=== PATIENT | male | born 1995 | race Two or more races ===

== ENCOUNTER 2023-01-11 16:03 | Inpatient (IN) | payer OTHER ==
[~2023-01-11] VITALS: Ht 172.7 cm; Wt 94.5 kg
[2023-01-11 16:30] VITALS: PULSE 102; RESP 13; O2SAT 94
[2023-01-11] MEDS ORDERED: SODIUM CHLORIDE 0.9% 2,000 ML IV ONE (16:30)
[2023-01-11 16:43] LABS: Basophils % (auto) 0.6 % (0.0-2.0); Lymphocytes # (auto) 1.5 10 ^3/uL (0.4-5.4); Lymphocytes % (auto) 15.4 % (10.0-50.0); Monocytes # (auto) 0.5 10 ^3/uL (0-1.3); Monocytes % (auto) 5.4 % (0.0-12.0); Neutrophils # (auto) 7.7 10 ^3/uL (1.6-8.6); Neutrophils % (auto) 78.6 % (37.0-80.0); White Blood Cell 9.7 10^3/uL (4.4-10.8)
[2023-01-11 16:44] LABS: Basophils # (auto) 0.1 10 ^3/uL (0-0.2); Eosinophils # (auto) 0 10 ^3/uL (0-0.8); Hematocrit 42.3 % (41.0-53.0); Hemoglobin 14.5 g/dL (13.5-17.5); Mean Corpuscular Hemoglobin 31.9 pg (28.0-32.0); Mean Corpuscular Hgb Conc. 34.3 g/dL (32.0-36.0); Mean Corpuscular Volume 93.2 fL (80.0-100.0); Red Blood Cells 4.54 10^6/uL (4.5-5.90); Red Cell Distribution Width 13.6 % (11.8-14.3)
[2023-01-11 17:01] LABS: Alanine Aminotransferase 75 U/L (7-40); Albumin 4.2 g/dL (3.2-4.8); Alkaline Phosphatase 83 U/L (46-116); Anion Gap 7 (5-15); Aspartate Aminotransferase 46 U/L (13-40); Bilirubin, Total 0.5 mg/dL (0.2-1.0); Calcium 8.5 mg/dL (8.5-10.1); Carbon Dioxide 28 mmol/L (20-30); Chloride 110 mmol/L (98-107); Glucose 88 mg/dL (74-106); Potassium 3.6 mmol/L (3.5-5.1); Sodium 145 mmol/L (136-145)
[2023-01-11] MEDS ORDERED: LORazepam 2MG/ML-1ML VIAL ONE (17:04)
[2023-01-11 17:09] LABS: INR 1.04 (0.9-1.15); Partial Thromboplastin Time 27.9 SEC (24.5-34.5); Prothrombin Time 10.9 sec (9.3-11.8)
[2023-01-11] MEDS ORDERED: LORazepam 2MG/ML-1ML VIAL IV ONE (17:15)
[2023-01-11 17:29] LABS: Amphetamine Screen, Urine Neg (NEGATIVE); Barbiturate Scree,Urine Neg (NEGATIVE); Benzodiazephine Screen, Urine Neg (NEGATIVE)
[2023-01-11 17:30] LABS: Cannabinoid Screen, Urine Neg (NEGATIVE); Cocaine Screen, Urine Neg (NEGATIVE); Opiate Scree,Urine Neg (NEGATIVE); Phencyclidine Screen, Urine Neg (NEGATIVE)
[2023-01-11 17:32] LABS: Urine Bacteria NONE SEEN /hpf (None Seen); Urine Blood Negative /uL (Negative); Urine Clarity Clear (Clear); Urine Color Colorless (Yellow); Urine Protein, UAD Negative (Negative); Urine Specific Gravity 1.004 (1.001-1.035); Urine Urobilinogen Normal (Negative); Urine WBC 1 /hpf (0 - 3)
[2023-01-11 17:35] LABS: BUN/Creatinine Ratio 8.6 (10.0-20.0); Blood Urea Nitrogen < 5 mg/dL (9-23)
[2023-01-11 17:36] LABS: Blood Alcohol 484.6 mg/dL (<10)
[2023-01-11 19:25] VITALS: PULSE 97; RESP 16; O2SAT 95
[2023-01-11] MEDS ORDERED: SODIUM CHLORIDE 0.9% 1,000 ML IV ONE (20:00)
[2023-01-11] MEDS ORDERED: SERT-206 PO (20:37)
[2023-01-11] MEDS ORDERED: GABA-1250 PO (20:37)
[2023-01-11] MEDS ORDERED: TRAZ-227 PO (20:37)
[2023-01-11] MEDS ORDERED: SERT-160 PO (20:37)
[2023-01-11] MEDS ORDERED: LEVE500T3 PO (20:37)
[2023-01-11] MEDS ORDERED: NALT50TA5 PO (20:37)
[2023-01-11] MEDS ORDERED: MORPHINE SULFATE INJ 2 MG/ml SYRG IV PRN (20:45)
[2023-01-11] MEDS ORDERED: ACETAMINOPHEN 325 MG TAB PO PRN (20:45)
[2023-01-11] MEDS ORDERED: ONDANSETRON HCL 4 MG/2 ML VIAL IV PRN (20:45)
[2023-01-11] MEDS ORDERED: NITROGLYCERIN 0.4 MG SL TAB SL PRN (20:45)
[2023-01-11] MEDS: SODIUM CHLORIDE 0.9% 1,000 ML IV SCH (21:20)
[2023-01-11] MEDS ORDERED: levETIRAcetam 500 MG TAB PO SCH (22:00)
[2023-01-11] MEDS: GABAPENTIN 300 MG CAP PO SCH (22:23)
[2023-01-12] MEDS: SODIUM CHLORIDE 0.9% 1,000 ML IV SCH ×2 (03:32→13:25)
[2023-01-12 03:56] VITALS: BP 112/79; PULSE 80; RESP 18; TEMP 97.6; O2SAT 100
[2023-01-12] MEDS: GABAPENTIN 300 MG CAP PO SCH ×2 (06:00→14:00)
[2023-01-12 08:00] VITALS: PULSE 86
[2023-01-12 08:49] LABS: Basophils # (auto) 0.1 10 ^3/uL (0-0.2); Basophils % (auto) 0.7 % (0.0-2.0); Eosinophils # (auto) 0 10 ^3/uL (0-0.8); Eosinophils % (auto) 0.2 % (0.0-7.0); Hematocrit 40.2 % (41.0-53.0); Hemoglobin 13.7 g/dL (13.5-17.5); Lymphocytes % (auto) 22.8 % (10.0-50.0); Mean Corpuscular Hemoglobin 31.9 pg (28.0-32.0); Mean Corpuscular Hgb Conc. 34.1 g/dL (32.0-36.0); Mean Corpuscular Volume 93.5 fL (80.0-100.0); Monocytes # (auto) 0.4 10 ^3/uL (0-1.3); Monocytes % (auto) 4.9 % (0.0-12.0); Neutrophils # (auto) 6.2 10 ^3/uL (1.6-8.6); Neutrophils % (auto) 71.4 % (37.0-80.0); Nucleated Red Blood Cells % 0.1 %; Red Blood Cells 4.29 10^6/uL (4.5-5.90); Red Cell Distribution Width 13.3 % (11.8-14.3); White Blood Cell 8.6 10^3/uL (4.4-10.8)
[2023-01-12 09:07] VITALS: BP 121/67; PULSE 85; RESP 15; TEMP 98.9; O2SAT 99
[2023-01-12 09:09] LABS: Alanine Aminotransferase 53 U/L (7-40); Albumin 3.8 g/dL (3.2-4.8); Alkaline Phosphatase 76 U/L (46-116); Anion Gap 8 (5-15); Aspartate Aminotransferase 36 U/L (13-40); Calcium 8.2 mg/dL (8.5-10.1); Carbon Dioxide 27 mmol/L (20-30); Chloride 106 mmol/L (98-107); Glucose 86 mg/dL (74-106); Potassium 3.6 mmol/L (3.5-5.1); Sodium 141 mmol/L (136-145)
[2023-01-12 09:10] LABS: Bilirubin, Total 0.6 mg/dL (0.2-1.0); Total Protein 6.5 g/dL (5.7-8.2)
[2023-01-12 09:11] LABS: BUN/Creatinine Ratio 8.9 (10.0-20.0); Blood Urea Nitrogen < 5 mg/dL (9-23)
[2023-01-12] MEDS ORDERED: ENOXAPARIN SOD 40 MG/0.4 ML SYRINGE SC SCH (10:00)
[2023-01-12] MEDS ORDERED: SERTRALINE HCL 50 MG TAB PO SCH (10:00)
[2023-01-12] MEDS ORDERED: B-COMPLEX W/ C & FOLIC ACID(NEPHROVITE TAB) PO SCH (11:30)
[2023-01-12 13:00] VITALS: BP 137/88; PULSE 100; RESP 19; TEMP 98.3; O2SAT 98
[2023-01-12 16:22] VITALS: BP 137/88; PULSE 100; RESP 19; TEMP 98.3; O2SAT 98
[2023-01-12 17:00] VITALS: BP 113/68; PULSE 105; RESP 17; TEMP 98.5; O2SAT 96
[2023-01-13] MEDS ORDERED: THIAMINE HCL 100 MG TAB PO SCH (10:00)
== END 2023-01-12 17:00 | disposition home or self-care (01) | DRG 52 ==
LOC: EDBD 16:03 → ER 16:03 → EDUNIT# 16:03 → TELE 20:36 → TELE-EAST 01-12 02:45
PROVIDERS: ADMIT Nurse Practitioner Family; ATTEND Nurse Practitioner Acute Care
DX: G92.8 Other toxic encephalopathy (principal); F10.229 Alcohol dependence with intoxication, unspecified; G40.909 Epilepsy, unspecified, not intractable, without status epilepticus; Y90.8 Blood alcohol level of 240 mg/100 ml or more; H11.32 Conjunctival hemorrhage, left eye; S09.93XA Unspecified injury of face, initial encounter; R09.02 Hypoxemia; X58.XXXA Exposure to other specified factors, initial encounter; Y93.89 Activity, other specified; Y92.89 Other specified places as the place of occurrence of the external cause; Y99.8 Other external cause status
CPT/HCPCS: 36415; 70450; 70486; 71045; 72125; 80053; 80307; 80320; 81001; 82140; 85025; 85610; 85730; 96361; 96374; 99291; G0378; J2405; J7060

== ENCOUNTER 2024-01-13 03:11 | Emergency (ER) | payer MEDICAID, OTHER ==
[~2024-01-13] VITALS: Ht 172.7 cm; Wt 86.7 kg
[~2024-01-13 03:11] MED LIST: GABA-1250 PO; LEVE500T3 PO; NALT50TA5 PO; SERT-160 PO; SERT-206 PO; TRAZ-227 PO
[2024-01-13 05:02] LABS: Basophils # (auto) 0 10 ^3/uL (0-0.2); Basophils % (auto) 0.9 % (0.0-2.0); Eosinophils # (auto) 0 10 ^3/uL (0-0.8); Eosinophils % (auto) 0.3 % (0.0-7.0); Hematocrit 45.2 % (41.0-53.0); Hemoglobin 15.8 g/dL (13.5-17.5); Lymphocytes # (auto) 1.2 10 ^3/uL (0.4-5.4); Lymphocytes % (auto) 22.6 % (10.0-50.0); Mean Corpuscular Hemoglobin 34.6 pg (28.0-32.0); Mean Corpuscular Hgb Conc. 34.9 g/dL (32.0-36.0); Mean Corpuscular Volume 99.1 fL (80.0-100.0); Monocytes # (auto) 0.3 10 ^3/uL (0-1.3); Monocytes % (auto) 5.8 % (0.0-12.0); Neutrophils # (auto) 3.8 10 ^3/uL (1.6-8.6); Neutrophils % (auto) 70.4 % (37.0-80.0); Platelet Count (auto) 234 10^3/uL (140-450); Red Blood Cells 4.56 10^6/uL (4.5-5.90); Red Cell Distribution Width 13.4 % (11.8-14.3); White Blood Cell 5.4 10^3/uL (4.4-10.8)
[2024-01-13] MEDS: ONDANSETRON HCL 4 MG/2 ML VIAL IV ONE (05:02)
[2024-01-13] MEDS: SODIUM CHLORIDE 0.9% 1,000 ML IV ONE (05:02)
[2024-01-13] MEDS: LORazepam 0.5 MG TAB PO ONE (05:06)
[2024-01-13 05:21] LABS: Chloride 100 mmol/L (98-107); Potassium 3.5 mmol/L (3.5-5.1); Sodium 137 mmol/L (136-145)
[2024-01-13 05:22] LABS: Anion Gap 18 (5-15); Calcium 9.8 mg/dL (8.7-10.4); Carbon Dioxide 19 mmol/L (20-30)
[2024-01-13 05:27] LABS: BUN/Creatinine Ratio 10.9 (10.0-20.0); Blood Alcohol 249.8 mg/dL (<10); Blood Urea Nitrogen 7 mg/dL (9-23); Glucose 87 mg/dL (74-106)
[2024-01-13] MEDS ORDERED: KEP500T PO (05:30)
[2024-01-13 12:24] VITALS: BP 134/97; TEMP 98
[2024-01-13 12:25] VITALS: PULSE 97; RESP 16; O2SAT 98
== END 2024-01-13 12:35 | disposition home or self-care (01) ==
LOC: ER 03:11
DX: F10.129 Alcohol abuse with intoxication, unspecified (principal); R56.9 Unspecified convulsions; F17.210 Nicotine dependence, cigarettes, uncomplicated; F12.10 Cannabis abuse, uncomplicated; F15.10 Other stimulant abuse, uncomplicated; Z59.00 Homelessness unspecified; Z76.0 Encounter for issue of repeat prescription; Y90.8 Blood alcohol level of 240 mg/100 ml or more
CPT/HCPCS: 36415; 80048; 80320; 85025; 96361; 96374; 99283; J2405; J7030

== ENCOUNTER 2024-02-08 22:15 | Emergency (ER) | payer MEDICAID ==
[~2024-02-08] VITALS: Ht 172.7 cm; Wt 90.0 kg
[~2024-02-08 22:15] MED LIST changes: +KEP500T PO
[2024-02-08] MEDS: SODIUM CHLORIDE 0.9% 2,000 ML IV ONE (23:00)
[2024-02-08 23:11] LABS: Basophils # (auto) 0 10 ^3/uL (0-0.2); Basophils % (auto) 0.6 % (0.0-2.0); Eosinophils # (auto) 0 10 ^3/uL (0-0.8); Eosinophils % (auto) 0.2 % (0.0-7.0); Hematocrit 43.7 % (41.0-53.0); Hemoglobin 15.1 g/dL (13.5-17.5); Lymphocytes # (auto) 1.2 10 ^3/uL (0.4-5.4); Lymphocytes % (auto) 18.2 % (10.0-50.0); Mean Corpuscular Hemoglobin 33.7 pg (28.0-32.0); Mean Corpuscular Hgb Conc. 34.5 g/dL (32.0-36.0); Mean Corpuscular Volume 97.4 fL (80.0-100.0); Monocytes # (auto) 0.4 10 ^3/uL (0-1.3); Monocytes % (auto) 5.7 % (0.0-12.0); Neutrophils # (auto) 4.9 10 ^3/uL (1.6-8.6); Neutrophils % (auto) 75.3 % (37.0-80.0); Platelet Count (auto) 234 10^3/uL (140-450); Red Blood Cells 4.48 10^6/uL (4.5-5.90); Red Cell Distribution Width 13.2 % (11.8-14.3); White Blood Cell 6.5 10^3/uL (4.4-10.8)
[2024-02-08 23:27] LABS: Chloride 106 mmol/L (98-107); Sodium 143 mmol/L (136-145)
[2024-02-08 23:28] LABS: Anion Gap 13 (5-15); Calcium 8.8 mg/dL (8.7-10.4); Carbon Dioxide 24 mmol/L (20-31)
[2024-02-08 23:33] LABS: BUN/Creatinine Ratio 12.7 (10.0-20.0); Blood Urea Nitrogen 9 mg/dL (9-23); Glucose 106 mg/dL (74-106)
[2024-02-09 06:05] VITALS: PULSE 108; RESP 14; O2SAT 91
[2024-02-09] MEDS: POTASSIUM CHL 20 Meq TABLET PO ONE (06:26)
[2024-02-09] MEDS: levETIRAcetam 1000 mg/100ml 100 ML IV ONE (06:26)
[2024-02-09 07:15] VITALS: PULSE 95; RESP 16; O2SAT 92
[2024-02-09 07:30] VITALS: BP 129/83; PULSE 95; RESP 12; TEMP 98.4; O2SAT 92
[2024-02-09] MEDS ORDERED: KEP500T PO (11:26)
== END 2024-02-09 11:39 | disposition home or self-care (01) ==
LOC: ER 22:15 → EDBD 22:15 → ER 02-09 11:32
DX: F10.129 Alcohol abuse with intoxication, unspecified (principal); F17.210 Nicotine dependence, cigarettes, uncomplicated; F12.90 Cannabis use, unspecified, uncomplicated; F15.90 Other stimulant use, unspecified, uncomplicated; Z79.899 Other long term (current) drug therapy; Z59.00 Homelessness unspecified
CPT/HCPCS: 36415; 80048; 80320; 85025; 96361; 96374; 99285; J1953; J7030

== ENCOUNTER 2024-03-28 16:30 | Emergency (ER) | payer MEDICAID | END 2024-03-28 16:35 | disposition left against medical advice (07) | LOC: ER 16:30 → EDBD 16:30 → ER 16:35 | DX: R10.9 Unspecified abdominal pain (principal); Z53.21 Procedure and treatment not carried out due to patient leaving prior to being seen by health care provider ==

== ENCOUNTER 2024-03-28 17:56 | Emergency (ER) | payer MEDICAID ==
--- NOTE | 2024-03-28 18:23 | ED.PDOC ---
History of Present Illness HPI Comments This patient is a 28-year-old male who was brought in by PD today for a medical clearance for usp processing. Patient was discovered by PD with a nitrous container as well as an outstanding felony warrant. At arrival, patient had no complaints and appears to be slightly altered due to probable nitrous use. Time Seen by MD: 18:13 Reviewed Notes: Nurses Notes Allergies: Coded Allergies: No Known Drug Allergy (Verified Allergy, Unknown, 01/11/23) Home Meds Active Scripts Levetiracetam (KEPPRA TABLET) 500 Mg Tb, 500 MG PO BID for 30 Days, #60 TAB Prov:LLOYD ESQUIVEL MD 02/09/24 Levetiracetam (KEPPRA TABLET) 500 Mg Tb, 500 MG PO BID, #60 TAB Prov:JANE COX MD 01/13/24 Reported Medications Naltrexone Hcl (Naltrexone Hcl) 50 Mg Tab, 1 TAB PO DAILY 01/11/23 Gabapentin (Gabapentin) 300 Mg Cap, 1 CAP PO TID 01/11/23 Sertraline Hcl (Sertraline Hcl) 50 Mg Tab, 1 TAB PO DAILY 01/11/23 Trazodone Hcl (Trazodone Hcl) 50 Mg Tab, TAB PO 01/11/23 Sertraline Hcl (Sertraline Hcl) 100 Mg Tab, 1 TAB PO DAILY 01/11/23 Levetiracetam (Levetiracetam) 500 Mg Tab, 1 TAB PO BID 01/11/23 Information Source: Patient, Law Enforcement Mode of Arrival: Ambulatory Severity: Mild Timing: Minutes Duration: Since onset Prehospital treatment: None Past Medical History PAST MEDICAL HISTORY: Seizures Surgical History: Denies all surgeries Family History Family History: Reviewed,noncontributory to illness Social History Smoker: Cigarettes Alcohol: Heavy Drugs: Marijuana, Methamphetamine Lives In: Homeless Constitutional: denies: chills, diaphoresis, fatigue, fever, malaise, sweats, weakness, others EENTM: denies: blurred vision, double vision, ear bleeding, ear discharge, ear drainage, ear pain, ear ringing, eye pain, eye redness, hearing loss, mouth pain, mouth swelling, nasal discharge, nose bleeding, nose congestion, nose pain, photophobia, tearing, throat pain, throat swelling, voice changes, others Respiratory: denies: cough, hemoptysis, orthopnea, SOB at rest, shortness of breath, SOB with excertion, stridor, wheezing, others Cardiovascular: denies: chest pain, dizzy spells, diaphoresis, Dyspnea on exertion, edema, irregular heart beat, left arm pain, lightheadedness, palpitations, PND, syncope, others Gastrointestinal: denies: abdomen distended, abdominal pain, blood streaked bowels, constipated, diarrhea, dysphagia, difficulty swallowing, hematemesis, melena, nausea, poor appetite, poor fluid intake, rectal bleeding, rectal pain, vomiting, others Genitourinary: denies: burning, dysuria, flank pain, frequency, hematuria, incontinence, penile discharge, penile sore, pain, testicle pain, testicle swelling, urgency, others Neurological: denies: dizziness, fainting, headache, left sided numbness, left sided weakness, numbness, paresthesia, pre-existing deficit, right sided numbness, right sided weakness, seizure, speech problems, tingling, tremors, weakness, others Musculoskeletal: denies: back pain, gout, joint pain, joint swelling, muscle pain, muscle stiffness, neck pain, others Integumetry: denies: bruises, change in color, change in hair/nails, dryness, laceration, lesions, lumps, rash, wounds, others Allergic/Immunocompromised: denies: Difficulty Healing, Frequent Infections, Hives, Itching, others Hematologic/Lymphatic: denies: anemia, blood clots, easy bleeding, easy bruising, swollen glands, others Endocrine: denies: excessive hunger, excessive sweating, excessive thirst, excessive urination, flushing, intolerance to cold, intolerance to heat, unexplained weight gain, unexplained weight loss, others Psychiatric: denies: anxiety, bipolar disorder, depression, hopeless, panic disorder, schizophrenia, sleepless, suicidal, others Physical Exam General Appearance: No Apparent Distress (Patient was in no distress and appear ed to be slightly altered. Probably due to nitrous use.), Normal HEENT: Normal ENT Inspection, Pharynx Normal, TMs Normal Neck: Full Range of Motion, Non-Tender, Normal, Normal Inspection Respiratory: Chest Non-Tender, Lungs Clear, No Accessory Muscle Use, No Respiratory Distress, Normal Breath Sounds Cardiovascular: No Edema, No JVD, No Murmur, No Gallop, Normal Peripheral Pulses, Regular Rate/Rhythm Breast Exam: Deferred Gastrointestinal: No Organomegaly, Non Tender, No Pulsatile Mass, Normal Bowel Sounds, Soft Genitalia: Deferred Pelvic: Deferred Rectal: Deferred Extremities: No calf tenderness, Normal capillary refill, Normal inspection, Normal range of motion, Non-tender, No pedal edema Neurologic: Alert, photo machine operator II-XII nml as Tested, No Motor Deficits, Normal Affect, Normal Mood, No Sensory Deficits Cerebellar Function: Normal Reflexes: Normal Skin: Dry, Normal Color, Warm Lymphatic: No Adenopathy Was a procedure done? Was a procedure done?: No Differential Dx Considerations may include: Medical clearance for incarceration X-Ray, Labs, Meds, VS Comment Patient is cleared for incarceration processing. Time of 1ST Reevaluation: 18:21 Reevaluation 1ST: Unchanged Consultation: PCP Patient Education/Counseling: Diagnosis, Treatment Family Education/Counseling: Diagnosis, Treatment Departure 1 Departure Time of Disposition: 18:22 Impression: Primary Impression: Medical clearance for incarceration Disposition: 01 HOME / SELF CARE / HOMELESS Condition: Stable Additional Instructions: Okay to proceed with usp processing. Medically cleared. Discharged With: Self, Law Enforcement Critical Care Note Critical Care Time?: No Stability Stability form required: No Heart Score Heart Score: Heart Score Response (Comments) Value History N/A 0 EKG N/A 0 Age N/A 0 Risk Factors N/A 0 Troponin N/A 0 Total 0 SUKUMAR COKER PAC Mar 28, 2024 18:23
== END 2024-03-28 18:43 | disposition home or self-care (01) ==
LOC: ER 17:56
DX: Z02.89 Encounter for other administrative examinations (principal); F17.210 Nicotine dependence, cigarettes, uncomplicated; F12.10 Cannabis abuse, uncomplicated; F15.10 Other stimulant abuse, uncomplicated; Z59.00 Homelessness unspecified; Z79.899 Other long term (current) drug therapy

== ENCOUNTER 2024-09-30 19:42 | Inpatient (IN) | payer MEDICAID, OTHER ==
[~2024-09-30] VITALS: Ht 177.8 cm; Wt 90.7 kg
--- NOTE | 2024-09-30 20:03 | ED.PDOC ---
History of Present Illness HPI Comments This is a 28-year-old female who comes in from the crisis center by EMS with chief complaint of altered mental status. The patient walked into the crisis center and is not sure if the patient had a seizure or a syncopal episode. The patient is somewhat altered and is denying suicidal or homicidal ideation at this time. The patient denies any nausea, vomiting or diarrhea. The patient has been at the crisis center since about 3:00 a.m. this afternoon. The patient's blood pressure was somewhat elevated so 911 was called and the patient was transported to our facility. When the paramedics arrived, the patient had a blood pressure of 158/98 with heart rate of 116. When asked questions, the patient is still somewhat lethargic. The patient has no chest pain or shortness for breath. Time Seen by MD: 19:52 Reviewed Notes: Nurses Notes, Medications, Allergies (No allergies to medications) Allergies: Coded Allergies: NO KNOWN ALLERGIES (Unverified , 09/30/24) Information Source: Patient Mode of Arrival: EMS Severity: Moderate Timing: Hours Duration: Since onset Prehospital treatment: Accucheck (108), Oncology Rep Specialist Associated signs and symptoms Generalized weakness Past Medical History PAST MEDICAL HISTORY: Seizures Surgical History: Denies all surgeries Family History Family History: No family hx of Cancer, No family hx of DM, No family hx of Heart asha Social History Smoker: Non-Smoker Alcohol: Denies ETOH Use Drugs: Denies Drug Use Lives In: Home Constitutional: reports: weakness; denies: chills, diaphoresis, fatigue, fever, malaise, sweats, others EENTM: denies: blurred vision, double vision, ear bleeding, ear discharge, ear drainage, ear pain, ear ringing, eye pain, eye redness, hearing loss, mouth pain, mouth swelling, nasal discharge, nose bleeding, nose congestion, nose pain, photophobia, tearing, throat pain, throat swelling, voice changes, others Respiratory: denies: cough, hemoptysis, orthopnea, SOB at rest, shortness of breath, SOB with excertion, stridor, wheezing, others Cardiovascular: denies: chest pain, dizzy spells, diaphoresis, Dyspnea on exertion, edema, irregular heart beat, left arm pain, lightheadedness, palpitations, PND, syncope, others Gastrointestinal: denies: abdomen distended, abdominal pain, blood streaked bowels, constipated, diarrhea, dysphagia, difficulty swallowing, hematemesis, melena, nausea, poor appetite, poor fluid intake, rectal bleeding, rectal pain, vomiting, others Neurological: reports: others (Altered mental status); denies: dizziness, fainting, headache, left sided numbness, left sided weakness, numbness, paresthesia, pre-existing deficit, right sided numbness, right sided weakness, seizure, speech problems, tingling, tremors, weakness Musculoskeletal: denies: back pain, gout, joint pain, joint swelling, muscle pain, muscle stiffness, neck pain, others Integumetry: denies: bruises, change in color, change in hair/nails, dryness, laceration, lesions, lumps, rash, wounds, others Allergic/Immunocompromised: denies: Difficulty Healing, Frequent Infections, Hives, Itching, others Hematologic/Lymphatic: denies: anemia, blood clots, easy bleeding, easy bruising, swollen glands, others Endocrine: denies: excessive hunger, excessive sweating, excessive thirst, excessive urination, flushing, intolerance to cold, intolerance to heat, unexplained weight gain, unexplained weight loss, others Psychiatric: denies: anxiety, bipolar disorder, depression, hopeless, panic disorder, schizophrenia, sleepless, suicidal, others Physical Exam General Appearance: Moderate Distress HEENT: Normal ENT Inspection, Pharynx Normal, TMs Normal Neck: Full Range of Motion, Non-Tender, Normal, Normal Inspection Respiratory: Chest Non-Tender, Lungs Clear, No Accessory Muscle Use, No Respiratory Distress, Normal Breath Sounds Cardiovascular: No Edema, No JVD, No Murmur, No Gallop, Normal Peripheral Pulses, Regular Rate/Rhythm Breast Exam: Deferred Gastrointestinal: No Organomegaly, Non Tender, No Pulsatile Mass, Normal Bowel Sounds, Soft Genitalia: Deferred Pelvic: Deferred Rectal: Deferred Extremities: No calf tenderness, Normal capillary refill, No pedal edema Musculoskeletal : Apperance: Normal Neurologic: religious education director II-XII nml as Tested, Motor Weakness, Normal Affect, No Sensory Deficits, Other (Altered mental status and the patient is attempting to answer questions slowly) Cerebellar Function: Unable to Test Reflexes: Normal Skin: Dry, Pallor, Warm Lymphatic: No Adenopathy Was a procedure done? Was a procedure done?: No EKG EKG : Pulse Rate (adult): 104 [place]: Normal Cardiac Rhythm: ST Block: None ST: Nonsp Differential Dx Considerations may include: Altered mental status, generalized weakness, dehydration X-Ray, Labs, Meds, VS Vital Signs Date Time Temp Pulse Resp B/P (MAP) Pulse Ox O2 Delivery O2 Flow Rate FiO2 09/30/24 20:08 104 09/30/24 20:06 104 09/30/24 19:46 98.5 104 16 126/88 (101) 98 98.5 Lab Test 09/30/24 20:04 Range/Units White Blood Count 8.8 4.4-10.8 10^3/uL Red Blood Count 4.76 4.5-5.90 10^6/uL Hemoglobin 14.5 13.5-17.5 g/dL Hematocrit 42.7 41.0-53.0 % Mean Corpuscular Volume 89.7 80.0-100.0 fL Mean Corpuscular Hemoglobin 30.5 28.0-32.0 pg Mean Corpuscular Hemoglobin Concent 34.0 32.0-36.0 g/dL Red Cell Distribution Width 12.2 11.8-14.3 % Platelet Count 358 140-450 10^3/uL Mean Platelet Volume 7.9 6.9-10.8 fL Neutrophils (%) (Auto) 78.9 37.0-80.0 % Lymphocytes (%) (Auto) 15.4 10.0-50.0 % Monocytes (%) (Auto) 5.3 0.0-12.0 % Eosinophils (%) (Auto) 0.0 0.0-7.0 % Basophils (%) (Auto) 0.4 0.0-2.0 % Neutrophils # (Auto) 7.0 1.6-8.6 10 ^3/uL Lymphocytes # (Auto) 1.4 0.4-5.4 10 ^3/uL Monocytes # (Auto) 0.5 0-1.3 10 ^3/uL Eosinophils # (Auto) 0 0-0.8 10 ^3/uL Basophils # (Auto) 0 0-0.2 10 ^3/uL Nucleated Red Blood Cells 0.1 % Sodium Level 144 136-145 mmol/L Potassium Level 3.4 L 3.5-5.1 mmol/L Chloride Level 109 H 98-107 mmol/L Carbon Dioxide Level 26 20-31 mmol/L Anion Gap 9 5-15 Blood Urea Nitrogen 6 L 9-23 mg/dL Creatinine 0.64 L 0.700-1.30 mg/dL Glomerular Filtration Rate Calc 134 >90 mL/min BUN/Creatinine Ratio 9.4 L 10.0-20.0 Serum Glucose 133 H 74-106 mg/dL Calcium Level 10.0 8.7-10.4 mg/dL Plasma/Serum Blood Alcohol < 3.0 <10 mg/dL Current Medications Medications (Trade) Dose Ordered Sig/Denise Route Start Time Stop Time Status Last Admin Levetiracetam 100 ml @ 400 mls/hr ONCE ONCE IV 09/30/24 20:00 09/30/24 20:14 DC 09/30/24 20:37 The patient was given Keppra here in the emergency department's We do not know if this is a Hunter's paralysis as the patient is still altered. The patient's CBC and chemistry panel are within normal limits The alcohol level is negative The patient is being admitted A neurology consult will be obtained. Time of 1ST Reevaluation: 20:02 Reevaluation 1ST: Unchanged Patient Education/Counseling: Diagnosis, Treatment, Prognosis Family Education/Counseling: No Family Present Departure 1 Departure Time of Disposition: 21:23 Impression: Primary Impression: Toxic encephalopathy Qualified Codes: G92.9 - Unspecified toxic encephalopathy Disposition: 09 ADMITTED INPATIENT Admit to: [facility] Condition: Fair Critical Care Note Critical Care Time?: Yes (45 min-critical care time only) Stability Stability form required: Yes Unstable for transfer: Telemetry monitoring (Telemetry monitoring required), ED Physician Assesment (Clinical assesment) Heart Score Heart Score: Heart Score Response (Comments) Value History N/A 0 EKG N/A 0 Age N/A 0 Risk Factors N/A 0 Troponin N/A 0 Total 0 CRISTA HENRY MD Sep 30, 2024 20:03
[2024-09-30 20:16] LABS: Basophils # (auto) 0 10 ^3/uL (0-0.2); Basophils % (auto) 0.4 % (0.0-2.0); Eosinophils # (auto) 0 10 ^3/uL (0-0.8); Hematocrit 42.7 % (41.0-53.0); Hemoglobin 14.5 g/dL (13.5-17.5); Lymphocytes # (auto) 1.4 10 ^3/uL (0.4-5.4); Lymphocytes % (auto) 15.4 % (10.0-50.0); Mean Corpuscular Hemoglobin 30.5 pg (28.0-32.0); Mean Corpuscular Volume 89.7 fL (80.0-100.0); Monocytes # (auto) 0.5 10 ^3/uL (0-1.3); Monocytes % (auto) 5.3 % (0.0-12.0); Neutrophils % (auto) 78.9 % (37.0-80.0); Nucleated Red Blood Cells % 0.1 %; Platelet Count (auto) 358 10^3/uL (140-450); Red Blood Cells 4.76 10^6/uL (4.5-5.90); Red Cell Distribution Width 12.2 % (11.8-14.3); White Blood Cell 8.8 10^3/uL (4.4-10.8)
[2024-09-30 20:23] LABS: Sodium 144 mmol/L (136-145)
[2024-09-30 20:24] LABS: Anion Gap 9 (5-15); Carbon Dioxide 26 mmol/L (20-31)
[2024-09-30 20:30] LABS: BUN/Creatinine Ratio 9.4 (10.0-20.0)
[2024-09-30] MEDS: levETIRAcetam 1000 mg/100ml 100 ML IV ONE (20:37)
[2024-09-30 21:07] LABS: Blood Alcohol < 3.0 mg/dL (<10); Blood Urea Nitrogen 6 mg/dL (9-23); Chloride 109 mmol/L (98-107); Glucose 133 mg/dL (74-106); Potassium 3.4 mmol/L (3.5-5.1)
[2024-09-30 22:26] LABS: Base Excess 0.2 mmol/L (-2.0-3.0)
[2024-09-30 22:26] LABS: Urine Bacteria None Seen /hpf (None Seen)
[2024-09-30 22:34] LABS: Salicylate < 3.0 mg/dL (-30)
[2024-09-30 22:35] LABS: Alanine Aminotransferase 11 U/L (7-40); Albumin 4.5 g/dL (3.2-4.8); Alkaline Phosphatase 83 U/L (46-116); Anion Gap 9 (5-15); Aspartate Aminotransferase 14 U/L (13-40); BUN/Creatinine Ratio 9.2 (10.0-20.0); Calcium 10.2 mg/dL (8.7-10.4); Carbon Dioxide 24 mmol/L (20-31); Magnesium 1.8 mg/dL (1.6-2.6); Sodium 142 mmol/L (136-145); Total Protein 7.3 g/dL (5.7-8.2)
[2024-09-30 22:36] VITALS: PULSE 101; RESP 12; O2SAT 98
[2024-09-30 22:36] LABS: Urine Blood Negative /uL (Negative); Urine Clarity Clear (Clear); Urine Color Light-Yellow (Yellow); Urine Protein, UAD Negative (Negative); Urine Specific Gravity 1.011 (1.001-1.035); Urine Squamous Epithelial Cell None Seen /hpf (<5); Urine Urobilinogen Normal (Negative); Urine WBC 1 /HPF (0-3)
[2024-09-30 22:36] LABS: Bilirubin, Total 0.8 mg/dL (0.2-1.0); Blood Urea Nitrogen 6 mg/dL (9-23); Chloride 109 mmol/L (98-107); Glucose 134 mg/dL (74-106); Phosphorus 3.8 mg/dL (2.4-5.1); Potassium 3.3 mmol/L (3.5-5.1)
[2024-09-30 22:39] LABS: INR 1.08 (0.9-1.15); Prothrombin Time 11.4 sec (9.3-11.8)
[2024-09-30 22:44] LABS: Cocaine Screen, Urine Neg (NEGATIVE)
[2024-09-30 22:47] LABS: Amphetamine Screen, Urine Neg (NEGATIVE); Barbiturate Scree,Urine Neg (NEGATIVE); Benzodiazephine Screen, Urine Pos (NEGATIVE); Cannabinoid Screen, Urine Neg (NEGATIVE); Opiate Scree,Urine Neg (NEGATIVE); Phencyclidine Screen, Urine Neg (NEGATIVE)
--- NOTE | 2024-09-30 23:01 | DVH ---
CT BRAIN WITHOUT CONTRAST HISTORY: ALOC TECHNIQUE: Axial scans were obtained from the skull base through the vertex without contrast. Sagitta l and coronal reformats were generated. One or more of the following radiation dose reduction techniq ues were used for this examination: automated exposure control, adjustment of the mA and/or kV accord ing to patient size, use of iterative reconstruction technique. COMPARISON: None FINDINGS: Streak artifact somewhat limits evaluation. No acute intracranial hemorrhage or evidence of large vessel territorial infarction identified at thi s time. No midline shift. The basilar cisterns are patent. Santos-white differentiation appears relat ively preserved. The visualized paranasal sinuses and mastoid air cells are clear. No grossly displaced calvarial abno rmalities identified. IMPRESSION: No acute intracranial Findings as visualized.
[2024-09-30] MEDS ORDERED: SODIUM CHLORIDE 0.9% 1,000 ML IV ONE (23:30)
[2024-09-30] MEDS ORDERED: SODIUM CHLORIDE 0.9% 500 ML IV ONE (23:30)
--- NOTE | 2024-09-30 23:31 | DVHHPRES ---
History of Present Illness Resident Creating Document: SHANON KOENIG RESIDENT History of Present Illness Patient is a 28-year-old male with a past medical history of seizure disorder was brought to the ED via EMS from crisis center for altered level of consciousness. As per the ER physician documentation, Patient apparently went to the crisis Center today following an episode of seizure, was somewhat altered and denied any suicidal or homicidal ideation, denies nausea vomiting or diarrhea and he was at the crisis Center since 3 in the afternoon. Patient had elevated blood pressure and altered level of consciousness following which 911 was called and the patient transferred to [facility]. Patient was in a stuporous state when I went to examine and ask history from the patient, thus no information be obtained from the patient as he was obtunded but had oxygen saturation of 98% on room air, irregular breathing with respiratory rate 9 to 12, blood pressure 145/95 mmHg, mild tachycardia with a heart rate 100- 110/min. Pupils bilateral dilated equally and reactive, stat head CT was ordered along with urine drug screen and other labs. Patient has multiple admissions in the hospital under different record for altered level of consciousness and alcohol intoxication. Past medical history: Seizure disorder Surgical history: Unknown Social history: Unknown, multiple admissions for alcohol intoxication and substance use Home medications: Keppra 500 mg b.i.d. Review of Systems Review of Systems Patient seen and examined at the bedside Stuporous and unresponsive to voice and tactile painful stimulation At around 12:15 a.m., patient was reassessed and now he is more awake. Alert and oriented to time, place and person but is hallucinating Allergies: Coded Allergies: NO KNOWN ALLERGIES (Unverified , 09/30/24) Medications Current Medications Medications Dose Ordered Sig/Denise Route Start Time Stop Time Status Last Admin Dose Admin Lorazepam 1 mg Q5MINP PRN IV 09/30/24 22:00 Levetiracetam 100 ml @ 400 mls/hr BID IV 10/01/24 10:00 Exam Vital Signs Vital Signs Date Time Temp Pulse Resp B/P (MAP) Pulse Ox O2 Delivery O2 Flow Rate FiO2 09/30/24 22:36 101 12 98 Room Air* 0 21 21 09/30/24 22:00 99.7 145/95 (112) 99.7 Exam Constipation: Patient was alert and oriented to time, place and person and does not appear to be in acute distress Gen - no pallor, no icterus, no cyanosis, no clubbing, no LAD, no edema . Skin - Patients skin is warm and dry. HEENT - normocephalic, atraumatic, moist mucous membranes, pupils bilaterally dilated and reactive Neck - full ROM, no LAD, no JVD Pulmonary - B/L equal air entry with the right medial lower lobe inspiratory rales cardiovascular - normal S1,S2 heard. no murmurs heard. GI - soft abdomen without tenderness to palpation. no hepatospleenomegaly. Bowel sounds normoactive Neurological - patient initially was stuporous, had dilated pupils bilaterally, irregular breathing but maintaining oxygen saturation and later was awake, oriented to time, place and person, hallucinating, following commands Labs/Xrays Labs Test 09/30/24 22:24 09/30/24 22:20 09/30/24 22:02 09/30/24 20:04 Range/Units Lactic Acid Level 1.4 0.4-2.0 mmol/L Blood Gas Specimen Type Arterial Blood Gas Sample Site Left radial Blood Gas Patient Temperature 37.0 Arterial Blood Date Drawn [id number] Arterial Blood pH 7.494 H 7.350-7.450 Arterial Blood Partial Pressure CO2 29.7 L 35.0-48.0 mmHg Arterial Blood Partial Pressure O2 89.0 83.0-108.0 mmHg Arterial Blood HCO3 22.3 21.0-28.0 mmol/L Arterial Blood Oxygen Saturation 97.2 94.0-98.0 % Arterial Blood Base Excess 0.2 -2.0-3.0 mmol/L Arterial Blood Oxyhemoglobin 95.9 94.0-98.0 % Arterial Blood Carboxyhemoglobin 0.8 0.5-1.5 % Arterial Blood Methemoglobin 0.5 0.0-1.5 % Norm Test Modified Blood Gas Total Hemoglobin 15.10 13.5-17.5 g/dL Blood Gas Liter Flow 0.00 Blood Gas Modality Room air Blood Gas Spontaneous Rate 20 FiO2 % 21.0 Specimen Drawn By Dimitri david rt Urine Color Light-yellow Yellow Urine Clarity Clear Clear Urine pH 6.0 5.0-9.0 Urine Specific [place] 1.011 1.001-1.035 Urine Protein Negative Negative Urine Ketones 1+ H Negative Urine Blood Negative Negative /uL Urine Nitrite Negative Negative Urine Bilirubin Negative Negative Urine Urobilinogen Normal Negative mg/dL Urine Leukocyte Esterase Negative Negative /uL Urine RBC <1 0 - 3 /hpf Urine Microscopic WBC 1 0-3 /HPF Urine Squamous Epithelial Cells None seen <5 /hpf Urine Bacteria None seen None Seen /hpf Urine Glucose Normal Normal mg/dL Urine Opiates Screen Neg NEGATIVE Urine Fentanyl Screen Neg NEGATIVE Urine Barbiturates Screen Neg NEGATIVE Urine Phencyclidine Screen Neg NEGATIVE Urine Amphetamines Screen Neg NEGATIVE Urine Benzodiazepines Screen Pos NEGATIVE Urine Cocaine Screen Neg NEGATIVE Urine Cannabinoids Screen Neg NEGATIVE White Blood Count 8.8 4.4-10.8 10^3/uL Red Blood Count 4.76 4.5-5.90 10^6/uL Hemoglobin 14.5 13.5-17.5 g/dL Hematocrit 42.7 41.0-53.0 % Mean Corpuscular Volume 89.7 80.0-100.0 fL Mean Corpuscular Hemoglobin 30.5 28.0-32.0 pg Mean Corpuscular Hemoglobin Concent 34.0 32.0-36.0 g/dL Red Cell Distribution Width 12.2 11.8-14.3 % Platelet Count 358 140-450 10^3/uL Mean Platelet Volume 7.9 6.9-10.8 fL Neutrophils (%) (Auto) 78.9 37.0-80.0 % Lymphocytes (%) (Auto) 15.4 10.0-50.0 % Monocytes (%) (Auto) 5.3 0.0-12.0 % Eosinophils (%) (Auto) 0.0 0.0-7.0 % Basophils (%) (Auto) 0.4 0.0-2.0 % Neutrophils # (Auto) 7.0 1.6-8.6 10 ^3/uL Lymphocytes # (Auto) 1.4 0.4-5.4 10 ^3/uL Monocytes # (Auto) 0.5 0-1.3 10 ^3/uL Eosinophils # (Auto) 0 0-0.8 10 ^3/uL Basophils # (Auto) 0 0-0.2 10 ^3/uL Nucleated Red Blood Cells 0.1 % Prothrombin Time 11.4 9.3-11.8 sec Prothrombin Time INR 1.08 0.9-1.15 Activated Partial Thromboplast Time 28.0 24.5-34.5 SEC Sodium Level 142 136-145 mmol/L Potassium Level 3.3 L 3.5-5.1 mmol/L Chloride Level 109 H 98-107 mmol/L Carbon Dioxide Level 24 20-31 mmol/L Anion Gap 9 5-15 Blood Urea Nitrogen 6 L 9-23 mg/dL Creatinine 0.65 L 0.700-1.30 mg/dL Glomerular Filtration Rate Calc 133 >90 mL/min BUN/Creatinine Ratio 9.2 L 10.0-20.0 Serum Glucose 134 H 74-106 mg/dL Serum Osmolality 288 278-298 mOsm/kg Calcium Level 10.2 8.7-10.4 mg/dL Phosphorus Level 3.8 2.4-5.1 mg/dL Magnesium Level 1.8 1.6-2.6 mg/dL Total Bilirubin 0.8 0.2-1.0 mg/dL Aspartate Amino Transferase (AST) 14 13-40 U/L Alanine Aminotransferase (ALT) 11 7-40 U/L Alkaline Phosphatase 83 46-116 U/L Total Protein 7.3 5.7-8.2 g/dL Albumin 4.5 3.2-4.8 g/dL Thyroid Stimulating Hormone (TSH) 0.95 0.55-4.78 uIU/mL Salicylates Level < 3.0 -30 mg/dL Acetaminophen Level 2.0 L 10.0-20.0 UG/ML Plasma/Serum Blood Alcohol < 3.0 <10 mg/dL Assessment/Plan Assessment/Plan Acute metabolic encephalopathy possibly due to drug intoxication Seizures with the underlying history of seizure disorder ? Drug intoxication Respiratory alkalosis Hypokalemia - urine drug screen positive for benzodiazepines (possible medication for seizure vs abuse) - 12 lead ECG shows sinus tachycardia, no ST or T-wave abnormalities, no blocks - head CT shows no acute intracranial abnormality - Keppra 1500 mg bolus given, 500 b.i.d. - IV fluids - telemonitor - electrolyte replacement - Ativan p.r.n. for seizures PUD prophylaxis: Protonix Goals of care discussed with the patient's nurse kelli for over 29 minutes. Full code Plan discussed with Dr. Talbot Plan discussed with: Other (ABHILASH Gay) My Orders Orders - SHANON KOENIG RESIDENT Procedure Category Date Status Time Head Without Contrast CT 09/30/24 Resulted 21:48 Admit ADMIT 09/30/24 Transmitted 21:53 Oxygen By Nasal RT 09/30/24 Transmitted Cannula 21:53 Stat Ekg For Chest DEB 09/30/24 In Process Pain 21:53 Notify Md Of Changes DEB 09/30/24 In Process From Base 21:53 [employer] Technician For DEB 09/30/24 In Process 24 Hours 21:53 Emergency Dysrhythmia DEB 09/30/24 In Process Protocol 21:53 Rhythm Strips Once DEB 09/30/24 In Process Every Shift 21:53 Abg W/ Co-Ox RT 09/30/24 Logged 21:53 Lorazepam 2mg/Ml Inj PHA 09/30/24 In Process (Ativan Inj) 22:00 Levetiracetam 500 PHA 10/01/24 In Process Mg/100ml (Levetiraceta 10:00 Date of Service: Sep 30, 2024 Billing Provider: TRAE TALBOT MD Common Visit Codes: 89957-HVHDNFH INP/OBS CARE (HIGH) Secondary Visit Codes: 70896-GDJMCURG CARE PLAN 30 MINUTES SHANON KOENIG RESIDENT Sep 30, 2024 23:31
[2024-10-01] MEDS: levETIRAcetam 500 mg/100ml 100 ML IV ONE
[2024-10-01] MEDS: POTASSIUM CHL 20MEQ/100ML 100 ML IV SCH (00:12)
[2024-10-01] MEDS: LACTATED RINGER'S 500 ML IV ONE (00:29)
[2024-10-01] MEDS: PANTOPRAZOLE 40 MG/10 ML VIAL INJ IV ONE (01:00)
[2024-10-01] MEDS ORDERED: ONDANSETRON HCL 4 MG/2 ML VIAL IV PRN (01:00)
[2024-10-01] MEDS: LACTATED RINGER'S 1,000 ML IV ONE (02:02)
--- NOTE | 2024-10-01 04:21 | ECG ---
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
[2024-10-01 08:30] VITALS: PULSE 74; RESP 74; O2SAT 98
[2024-10-01] MEDS ORDERED: POTASSIUM CHL 20MEQ/100ML 100 ML IV SCH (08:45)
--- NOTE | 2024-10-01 09:02 | DVHINCON2 ---
Date of service: Oct 01, [address] Fuentes Reason for Consultation History of seizure disorder, ALOC History of Present Illness Mr. Saint Floyd is a 28 years old gentleman with a history of seizure disorder, the patient was brought to the [facility] ER on 09/30/2024 with a chief company of altered mental status. At this time, he was in the bed, he was arousable, he may only oriented to himself, no family is available for the history According to his nurse and other medical staff, he was history of seizure, diabetes, and poor compliance. He was note and H and P documented the patient was walked into crisis center, not sure if he had a seizure or syncopal episode. He denied nausea, vomiting or diarrhea. [phone], the surface is restricted or not available Plasma alcohol, 09/30/2024: Normal UDS, 09/30/2024: Benzo Urinalysis, 09/30/2024: Unremarkable ABG, 09/30/2024: Respiratory alkalosis CBC, 09/30/2024: Unremarkable CMP, 09/30/2024: Unremarkable TSH, 09/30/2024: 0.95 CT head, 09/30/2024: No acute intracranial Findings as visualized. Past Medical History Seizure, diabetes Past Surgical History Denies all surgeries Family History No family hx of Cancer, No family hx of DM, No family hx of Heart asha Social History Smoker: Non-Smoker Alcohol: Denies ETOH Use (RN: Excessive alcohol consumption) Drugs: Denies Drug Use Lives In: Home Allergies: Coded Allergies: NO KNOWN ALLERGIES (Unverified , 09/30/24) Current Medications Current Medications Medications (Trade) Dose Ordered Sig/Denise Route PRN Reason Start Time Stop Time Status Last Admin Lorazepam (Ativan Inj) 1 mg Q5MINP PRN IV SEIZURES 09/30/24 22:00 Levetiracetam 100 ml @ 400 mls/hr BID IV 10/01/24 10:00 Potassium Chloride 100 ml @ 50 mls/hr Q2H IV 09/30/24 23:30 10/01/24 03:29 DC 10/01/24 02:02 Pantoprazole Sodium (Protonix) 40 mg DAILY IV 10/01/24 10:00 Ondansetron HCl (Zofran) 4 mg Q6HPRN PRN IV NAUSEA / VOMITING 10/01/24 01:00 Potassium Chloride 100 ml @ 50 mls/hr Q2H IV 10/01/24 08:45 10/01/24 12:44 UNV Review of Systems Unavailable Vital Signs Vital Signs Date Time Temp Pulse Resp B/P (MAP) Pulse Ox O2 Delivery O2 Flow Rate FiO2 10/01/24 08:00 77 10/01/24 00:36 99.0 11 125/87 (100) 96 99.0 09/30/24 22:36 Room Air* 0 21 21 Physical Exam GENERAL EXAM: General: the patient is well developed and nourished. No acute distress. HEENT: Normocephalic, neck is supple, no carotid bruits. No mass. RESPIRATORY: Normal respiratory effort with symmetrical lung expansion. Lungs clear to auscultation. CARDIOVASCULAR: Regular rate and rhythm with no murmurs. S1, S2. ABDOMEN: Soft, nontender, normal bowel sound NEUROLOGICAL: MENTAL STATUS: HPI SPEECH, LANGUAGE, HIGHER CORTICAL FUNCTION: He was speak with small did slurred voice CRANIAL NERVES: #2: Intact visual holden to confrontation. #3,4,6: Pupils are equal, round and reactive. EOMs full and conjugate. No nystagmus. #5: Facial sensation ok in all three divisions bilaterally. Mandibular strength intact. #7: Facial muscles symmetrical and strength intact. #8: Hearing grossly normal to voice. #9,10: Deferred #11: Deferred #12: Deferred. SENSATION: Sensation to touch and pinprick is ok MOTOR: Normal tone in the upper and lower extremity. Normal muscle bulk. No fasciculations. No abnormal movements or posturing he can move the arms and legs REFLEXES: Deep tendon reflexes are symmetrical. No pathological reflexes. CEREBELLAR/COORDINATION: Deferred GAIT/STATION: deferred Labs/Diagnostic Data Labs Test 10/01/24 08:33 09/30/24 22:24 09/30/24 22:20 09/30/24 22:02 Range/Units Lactic Acid Level 1.4 0.4-2.0 mmol/L Blood Gas Specimen Type Arterial Blood Gas Sample Site Left radial Blood Gas Patient Temperature 37.0 Arterial Blood Date Drawn [id number] Arterial Blood pH 7.494 H 7.350-7.450 Arterial Blood Partial Pressure CO2 29.7 L 35.0-48.0 mmHg Arterial Blood Partial Pressure O2 89.0 83.0-108.0 mmHg Arterial Blood HCO3 22.3 21.0-28.0 mmol/L Arterial Blood Oxygen Saturation 97.2 94.0-98.0 % Arterial Blood Base Excess 0.2 -2.0-3.0 mmol/L Arterial Blood Oxyhemoglobin 95.9 94.0-98.0 % Arterial Blood Carboxyhemoglobin 0.8 0.5-1.5 % Arterial Blood Methemoglobin 0.5 0.0-1.5 % Norm Test Modified Blood Gas Total Hemoglobin 15.10 13.5-17.5 g/dL Blood Gas Liter Flow 0.00 Blood Gas Modality Room air Blood Gas Spontaneous Rate 20 FiO2 % 21.0 Specimen Drawn By Dimitri david rt Urine Color Light-yellow Yellow Urine Clarity Clear Clear Urine pH 6.0 5.0-9.0 Urine Specific [place] 1.011 1.001-1.035 Urine Protein Negative Negative Urine Ketones 1+ H Negative Urine Blood Negative Negative /uL Urine Nitrite Negative Negative Urine Bilirubin Negative Negative Urine Urobilinogen Normal Negative mg/dL Urine Leukocyte Esterase Negative Negative /uL Urine RBC <1 0 - 3 /hpf Urine Microscopic WBC 1 0-3 /HPF Urine Squamous Epithelial Cells None seen <5 /hpf Urine Bacteria None seen None Seen /hpf Urine Glucose Normal Normal mg/dL Urine Opiates Screen Neg NEGATIVE Urine Fentanyl Screen Neg NEGATIVE Urine Barbiturates Screen Neg NEGATIVE Urine Phencyclidine Screen Neg NEGATIVE Urine Amphetamines Screen Neg NEGATIVE Urine Benzodiazepines Screen Pos NEGATIVE Urine Cocaine Screen Neg NEGATIVE Urine Cannabinoids Screen Neg NEGATIVE Test 09/30/24 20:04 Range/Units White Blood Count 8.8 4.4-10.8 10^3/uL Red Blood Count 4.76 4.5-5.90 10^6/uL Hemoglobin 14.5 13.5-17.5 g/dL Hematocrit 42.7 41.0-53.0 % Mean Corpuscular Volume 89.7 80.0-100.0 fL Mean Corpuscular Hemoglobin 30.5 28.0-32.0 pg Mean Corpuscular Hemoglobin Concent 34.0 32.0-36.0 g/dL Red Cell Distribution Width 12.2 11.8-14.3 % Platelet Count 358 140-450 10^3/uL Mean Platelet Volume 7.9 6.9-10.8 fL Neutrophils (%) (Auto) 78.9 37.0-80.0 % Lymphocytes (%) (Auto) 15.4 10.0-50.0 % Monocytes (%) (Auto) 5.3 0.0-12.0 % Eosinophils (%) (Auto) 0.0 0.0-7.0 % Basophils (%) (Auto) 0.4 0.0-2.0 % Neutrophils # (Auto) 7.0 1.6-8.6 10 ^3/uL Lymphocytes # (Auto) 1.4 0.4-5.4 10 ^3/uL Monocytes # (Auto) 0.5 0-1.3 10 ^3/uL Eosinophils # (Auto) 0 0-0.8 10 ^3/uL Basophils # (Auto) 0 0-0.2 10 ^3/uL Nucleated Red Blood Cells 0.1 % Prothrombin Time 11.4 9.3-11.8 sec Prothrombin Time INR 1.08 0.9-1.15 Activated Partial Thromboplast Time 28.0 24.5-34.5 SEC Sodium Level 142 136-145 mmol/L Potassium Level 3.3 L 3.5-5.1 mmol/L Chloride Level 109 H 98-107 mmol/L Carbon Dioxide Level 24 20-31 mmol/L Anion Gap 9 5-15 Blood Urea Nitrogen 6 L 9-23 mg/dL Creatinine 0.65 L 0.700-1.30 mg/dL Glomerular Filtration Rate Calc 133 >90 mL/min BUN/Creatinine Ratio 9.2 L 10.0-20.0 Serum Glucose 134 H 74-106 mg/dL Serum Osmolality 288 278-298 mOsm/kg Calcium Level 10.2 8.7-10.4 mg/dL Phosphorus Level 3.8 2.4-5.1 mg/dL Magnesium Level 1.8 1.6-2.6 mg/dL Total Bilirubin 0.8 0.2-1.0 mg/dL Aspartate Amino Transferase (AST) 14 13-40 U/L Alanine Aminotransferase (ALT) 11 7-40 U/L Alkaline Phosphatase 83 46-116 U/L Total Protein 7.3 5.7-8.2 g/dL Albumin 4.5 3.2-4.8 g/dL Thyroid Stimulating Hormone (TSH) 0.95 0.55-4.78 uIU/mL Salicylates Level < 3.0 -30 mg/dL Acetaminophen Level 2.0 L 10.0-20.0 UG/ML Plasma/Serum Blood Alcohol < 3.0 <10 mg/dL Assessment Altered mental status ? Subclinical seizure ? Metabolic/toxic encephalopathy ? Alcohol withdrawal syndrome (vitals signs are good as time) Psychologic disorder ? Anxiety ? Depression Reports seizure disorder ? Alcohol withdrawal seizure ? Epileptic seizure Plan/Recommendation Monitoring Supportive treatment Telemetry EEG MRI head Thiamine supplementation Folic acid supplementation Keppra 500 mg b.i.d. Ativan for seizure breakthrough GI prophylax More recommendation per clinical course Progress: Poor This medical document was created using an electronic medical record system with [employer] computerized dictation system. Although this document has been carefully reviewed, there may still be some phonetic and typographical errors. These areas are purely typographical due to imperfections of the software programs, and do not reflect any compromise in the patient's medical care. Plan discussed with: Other ALEJANDRA FLYNN MD Oct 01, 2024 09:02
[2024-10-01 10:05] LABS: Potassium 3.8 mmol/L (3.5-5.1); Sodium 142 mmol/L (136-145)
[2024-10-01 10:06] LABS: Anion Gap 8 (5-15); Calcium 9.9 mg/dL (8.7-10.4); Carbon Dioxide 26 mmol/L (20-31)
[2024-10-01 10:11] LABS: BUN/Creatinine Ratio 8.6 (10.0-20.0); Blood Urea Nitrogen 5 mg/dL (9-23); Chloride 108 mmol/L (98-107); Glucose 98 mg/dL (74-106)
--- NOTE | 2024-10-01 10:37 | DVH ---
MRI BRAIN WITHOUT CONTRAST CLINICAL HISTORY: ALOC, seizure TECHNIQUE: Multiplanar, multisequence MR images of the brain without intravenous contrast. Comparison: CT head 01/11/2023 FINDINGS: There is no restricted diffusion. The delgado and white matter signal is appropriate. There is no eviden ce of hemorrhage, mass, mass effect or midline shift. There is no hydrocephalus or extra-axial fluid collection. The visualized intracranial vasculature demonstrates appropriate flow-voids. The sagittal midline structures appear unremarkable. The craniocervical junction is within normal limits. The kandis varium demonstrates normal marrow signal. The paranasal sinuses and mastoid air cells are clear. IMPRESSION: 1. There is no acute intracranial process. HS:Y
[2024-10-01] MEDS: THIAMINE 100mg/ml INJ (200mg/2ml VIAL) IM ONE (10:58)
[2024-10-01] MEDS: FOLIC ACID 1 MG in D5W 5% 50 ML INJ ONE (10:58)
[2024-10-01] MEDS: LORazepam 2MG/ML-1ML VIAL IV ONE (10:58)
--- NOTE | 2024-10-01 11:02 | DVHPNRES ---
Progress Note Date Seen: Oct 01, 2024 Resident Creating Document: CANDIDA VILLARREAL RESIDENT Has the PT tested + for MRSA If YES, has PT been informed?: No Medical Necessity Reason Pt with a Central, PICC or Fol: No Subjective Review of Systems Patient is a 28-year-old male with a past medical history of seizure disorder was brought to the ED via EMS from crisis center for altered level of consciousness. As per the ER physician documentation, Patient apparently went to the crisis Center today following an episode of seizure, was somewhat altered and denied any suicidal or homicidal ideation, denies nausea vomiting or diarrhea and he was at the crisis Center since 3 in the afternoon. Patient had elevated blood pressure and altered level of consciousness following which 911 was called and the patient transferred to [facility]. Patient was in a stuporous state when I went to examine and ask history from the patient, thus no information be obtained from the patient as he was obtunded but had oxygen saturation of 98% on room air, irregular breathing with respiratory rate 9 to 12, blood pressure 145/95 mmHg, mild tachycardia with a heart rate 100- 110/min. Pupils bilateral dilated equally and reactive, stat head CT was ordered along with urine drug screen and other labs. Patient has multiple admissions in the hospital under different record for altered level of consciousness and alcohol intoxication. Past medical history: Seizure disorder Surgical history: Unknown Social history: Unknown, multiple admissions for alcohol intoxication and substance use Home medications: Keppra 500 mg b.i.d. 10/01/2024: patient is A0X1, still drowsy, brain MRI didn't show any abnormalities, possible acute toxic encephalopathy, patient will be f/u in the wards, case discussed with Dr De La aGrza neurologist. Objective vital signs Vital Sign Date Time Temp Pulse Resp B/P (MAP) Pulse Ox O2 Delivery O2 Flow Rate FiO2 10/01/24 08:30 74 74 98 Room Air* 0 21 10/01/24 08:30 99.4 126/80 (95) 99.4 Total Intake and Output 09/30/24 09/30/24 10/01/24 15:00 23:00 07:00 Intake Total 100 ml Balance 100 ml medications Current Medications Medications Dose Ordered Sig/Denise Route Start Time Stop Time Status Last Admin Dose Admin Lorazepam 1 mg Q5MINP PRN IV 09/30/24 22:00 Levetiracetam 100 ml @ 400 mls/hr BID IV 10/01/24 10:00 Pantoprazole Sodium 40 mg DAILY IV 10/01/24 10:00 Ondansetron HCl 4 mg Q6HPRN PRN IV 10/01/24 01:00 Thiamine HCl 100 mg DAILY IV 10/01/24 10:00 Folic Acid 1 mg/ Dextrose 50.2 ml @ 200.8 mls/ hr DAILY INJ 10/01/24 10:00 Examination Patient oriented ax1 Gen - no pallor, no icterus, no cyanosis, no clubbing, no LAD, no edema . Skin - Patients skin is warm and dry. HEENT - normocephalic, atraumatic, moist mucous membranes, pupils bilaterally dilated and reactive Neck - full ROM, no LAD, no JVD Pulmonary - B/L equal air entry with the right medial lower lobe inspiratory rales cardiovascular - normal S1,S2 heard. no murmurs heard. GI - soft abdomen without tenderness to palpation. no hepatospleenomegaly. Bowel sounds normoactive Neurological - patient has dilated pupils bilaterally, breathing pattern improves, he is maintaining oxygen saturation laboratory and microbiology Laboratory Tests 10/01/24 09:49 09/30/24 20:04 Test 10/01/24 09:49 Range/Units Serum Glucose 98 74-106 mg/dL Problem List/Assessment/Plan Problem List/Assessment/Plan Acute metabolic/toxic encephalopathy possibly due to drug intoxication Seizures with the underlying history of seizure disorder ? Drug intoxication Respiratory alkalosis Hypokalemia Alcohol withdrawal? - urine drug screen positive for benzodiazepines (possible medication for seizure vs abuse) UDS 10:00PM, Ativan 1 dose given at 12:00 AM - 12 lead ECG shows sinus tachycardia, no ST or T-wave abnormalities, no blocks - head CT shows no acute intracranial abnormality -brain MRI shows no acute intracranial abnormality - Keppra 1500 mg bolus given, 500 b.i.d. - IV fluids - electrolyte replacement - Ativan p.r.n. for seizures -Thiamine and folic acid -Dr De La Garza, neurologist consulted PUD prophylaxis: Protonix Goals of care discussed with the patient's nurse kelli for over 29 minutes. Full code Plan discussed with Dr. Miller Plan discussed with: Patient, Other (rn) My Orders My Orders Orders - CANDIDA VILLARREAL Procedure Category Date Status Time Drug Profile Blood (6 LAB 10/01/24 In Process Drugs) 08:15 Date of Service: Oct 01, 2024 Billing Provider: JR MILLER MD Common Visit Codes: [id number] INP/OBS CARE(HIGH) CANDIDA VILLARREAL RESIDENT Oct 01, 2024 11:02 JR MILLER MD Oct 02, 2024 13:42
[2024-10-01] MEDS: FOLIC ACID 1 MG in D5W 5% 50 ML INJ SCH (11:03)
[2024-10-01] MEDS: PANTOPRAZOLE 40 MG/10 ML VIAL INJ IV SCH (11:06)
[2024-10-01] MEDS: THIAMINE 100mg/ml INJ (200mg/2ml VIAL) IV SCH (11:07)
[2024-10-01] MEDS: levETIRAcetam 500 mg/100ml 100 ML IV SCH (11:08)
[2024-10-01] MEDS: LORazepam 2MG/ML-1ML VIAL IV PRN ×2 (17:43→20:38)
[2024-10-01 19:50] VITALS: PULSE 74; RESP 18; O2SAT 99
[2024-10-01 21:39] VITALS: PULSE 100; RESP 14; O2SAT 99
[2024-10-01 21:51] VITALS: BP 109/57; PULSE 99; RESP 14; TEMP 97.8; O2SAT 99
[2024-10-02] MEDS ORDERED: LEVE500T40 PO (07:07)
[2024-10-02 07:20] LABS: Hematocrit 43.9 % (41.0-53.0); Hemoglobin 15.1 g/dL (13.5-17.5); Mean Corpuscular Hemoglobin 31.3 pg (28.0-32.0); Mean Corpuscular Hgb Conc. 34.5 g/dL (32.0-36.0); Mean Corpuscular Volume 90.8 fL (80.0-100.0); Platelet Count (auto) 319 10^3/uL (140-450); Red Blood Cells 4.83 10^6/uL (4.5-5.90); Red Cell Distribution Width 12.4 % (11.8-14.3); White Blood Cell 10.3 10^3/uL (4.4-10.8)
[2024-10-02 07:22] LABS: Albumin 4.3 g/dL (3.2-4.8); Alkaline Phosphatase 80 U/L (46-116); Anion Gap 10 (5-15); BUN/Creatinine Ratio 14.3 (10.0-20.0); Band Neutrophils % (manual) 0; Basophils % (manual) 0 (0.0-2.0); Bilirubin, Total 1.1 mg/dL (0.2-1.0); Blast Cells 0; Blood Urea Nitrogen 10 mg/dL (9-23); Calcium 9.5 mg/dL (8.7-10.4); Carbon Dioxide 26 mmol/L (20-31); Chloride 107 mmol/L (98-107); Eosinophils % (manual) 0 (0-7); Glucose 92 mg/dL (74-106); Metamyelocytes % 0; Myelocytes % 0; Potassium 3.8 mmol/L (3.5-5.1); Promyelocytes % 0; Reactive Lymphocytes 0; Sodium 143 mmol/L (136-145)
[2024-10-02 07:31] LABS: Alanine Aminotransferase < 9 U/L (7-40); Aspartate Aminotransferase 13 U/L (13-40)
[2024-10-02 07:55] LABS: Lymphocytes % (manual) 26 (10.0-50.0); Monocytes % (manual) 3 (0-12); Platelet Estimate Adequate
[2024-10-02 08:00] VITALS: PULSE 77
[2024-10-02 08:30] VITALS: BP 127/88; PULSE 97; RESP 14; TEMP 98.6; O2SAT 99
--- NOTE | 2024-10-02 12:01 | DVHPNRES ---
Progress Note Date Seen: Oct 02, 2024 Resident Creating Document: CANDIDA VILLARREAL RESIDENT Has the PT tested + for MRSA If YES, has PT been informed?: No Medical Necessity Reason Pt with a Central, PICC or Fol: No Subjective Review of Systems Patient is a 28-year-old male with a past medical history of seizure disorder was brought to the ED via EMS from crisis center for altered level of consciousness. As per the ER physician documentation, Patient apparently went to the crisis Center today following an episode of seizure, was somewhat altered and denied any suicidal or homicidal ideation, denies nausea vomiting or diarrhea and he was at the crisis Center since 3 in the afternoon. Patient had elevated blood pressure and altered level of consciousness following which 911 was called and the patient transferred to [facility]. Patient was in a stuporous state when I went to examine and ask history from the patient, thus no information be obtained from the patient as he was obtunded but had oxygen saturation of 98% on room air, irregular breathing with respiratory rate 9 to 12, blood pressure 145/95 mmHg, mild tachycardia with a heart rate 100- 110/min. Pupils bilateral dilated equally and reactive, stat head CT was ordered along with urine drug screen and other labs. Patient has multiple admissions in the hospital under different record for altered level of consciousness and alcohol intoxication. Past medical history: Seizure disorder Surgical history: Unknown Social history: Unknown, multiple admissions for alcohol intoxication and substance use Home medications: Keppra 500 mg b.i.d. 10/01/2024: patient is A0X1, still drowsy, brain MRI didn't show any abnormalities, possible acute toxic encephalopathy, patient will be f/u in the wards, case discussed with Dr De La Garza neurologist. 10/02/2024: patient was alert AOX2 but started to be agitated, telepsych was consulted, patient will benefit of transfer to psych facility, olanzapine is started Objective vital signs Vital Sign Date Time Temp Pulse Resp B/P (MAP) Pulse Ox O2 Delivery O2 Flow Rate FiO2 10/02/24 08:30 98.6 97 14 127/88 (101) 99 98.6 10/02/24 08:00 Room Air* 0 21 Total Intake and Output 10/01/24 10/01/24 10/02/24 15:00 23:00 07:00 Intake Total 200 ml Output Total 1300 ml 500 ml Balance -1300 ml -300 ml medications Current Medications Medications Dose Ordered Sig/Denise Route Start Time Stop Time Status Last Admin Dose Admin Lorazepam 1 mg Q5MINP PRN IV 09/30/24 22:00 10/01/24 20:38 1 MG Levetiracetam 100 ml @ 400 mls/hr BID IV 10/01/24 10:00 10/02/24 09:32 400 MLS/HR Pantoprazole Sodium 40 mg DAILY IV 10/01/24 10:00 10/02/24 09:32 40 MG Ondansetron HCl 4 mg Q6HPRN PRN IV 10/01/24 01:00 Thiamine HCl 100 mg DAILY IV 10/01/24 10:00 10/02/24 09:32 100 MG Folic Acid 1 mg/ Dextrose 50.2 ml @ 200.8 mls/ hr DAILY INJ 10/01/24 10:00 10/02/24 09:31 200.8 MLS/HR Lorazepam 1 mg Q6HP PRN IV 10/01/24 16:30 10/01/24 17:43 1 MG Examination Patient oriented ax2 Gen - no pallor, no icterus, no cyanosis, no clubbing, no LAD, no edema . Skin - Patients skin is warm and dry. HEENT - normocephalic, atraumatic, moist mucous membranes, pupils bilaterally dilated and reactive Neck - full ROM, no LAD, no JVD Pulmonary - B/L equal air entry with the right medial lower lobe inspiratory rales cardiovascular - normal S1,S2 heard. no murmurs heard. GI - soft abdomen without tenderness to palpation. no hepatospleenomegaly. Bowel sounds normoactive laboratory and microbiology Laboratory Tests 10/02/24 06:21 Test 10/02/24 06:21 Range/Units Serum Glucose 92 74-106 mg/dL Problem List/Assessment/Plan Problem List/Assessment/Plan Acute metabolic/toxic encephalopathy possibly due to drug intoxication Seizures with the underlying history of seizure disorder ? Drug intoxication Respiratory alkalosis Hypokalemia Alcohol withdrawal? Paranoid disorder Hallucinations - urine drug screen positive for benzodiazepines (possible medication for seizure vs abuse) UDS 10:00PM, Ativan 1 dose given at 12:00 AM - 12 lead ECG shows sinus tachycardia, no ST or T-wave abnormalities, no blocks - head CT shows no acute intracranial abnormality -brain MRI shows no acute intracranial abnormality - Efrain 1500 mg bolus given, 500 b.i.d. - IV fluids - electrolyte replacement - Ativan p.r.n. for seizures -Thiamine and folic acid -Dr De La Garza, neurologist consulted 10/02/2024: patient was alert AOX2 but started to be agitated, telepsych was consulted, patient will benefit of transfer to psych facility, olanzapine is started PUD prophylaxis: Protonix Goals of care discussed with the patient's nurse kelli for over 29 minutes. Full code Plan discussed with Dr. Allen Plan discussed with: Patient, Other (rn) My Orders My Orders Orders - CANDIDA VILLARREAL RESIDENT Procedure Category Date Status Time Lorazepam 2mg/Ml Inj PHA 10/01/24 In Process (Ativan Inj) 16:30 Discontinue Reddy DEB 10/02/24 In Process Catheter 11:41 Date of Service: Oct 02, 2024 Billing Provider: JR ALLEN MD Common Visit Codes: [id number] INP/OBS CARE(HIGH) CANDIDA VILLARREAL RESIDENT Oct 02, 2024 12:01 JR ALLEN MD Oct 03, 2024 20:10
[2024-10-02 13:01] VITALS: BP 120/87; PULSE 111; RESP 16; TEMP 98.4; O2SAT 98
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
[2024-10-02 20:00] VITALS: PULSE 94
--- NOTE | 2024-10-02 20:36 | DVHPN2 ---
Progress Note - Dictate Date Seen: Oct 02, 2024 Has the PT tested + for MRSA If YES, has PT been informed?: No Medical Necessity Reason Pt with a Central, PICC or Fol: No Subjective Mr. Saint Floyd is a 28 years old gentleman with a history of seizure disorder, the patient was brought to the [facility] ER on 09/30/2024 with a chief company of altered mental status. Tele psych input appreciated, the patient was is recommended to be treated in a psychiatry facility At this time, he was awake, oriented x3, he provided the following history. He tells me he has a history of anxiety, depression, but no hypertension, no diabetes. He was has a history of almost daily heavy alcohol consumption. He was long history of seizure disorder, and he has company amnesia about his seizure symptoms. He reports he only have seizures when he stopped drinking alcohol. He was on Keppra 500 mg b.i.d., which was prescribed by hospitals or emergency rooms He denies a history of surgery Hypertension run in the family, but he does not remember psychiatric disorder or alcohol problem in the family He was a tobacco smoke, he drinks alcohol heavily, but he denies a history of drug abuse Plasma alcohol, 09/30/2024: Normal UDS, 09/30/2024: Benzo Urinalysis, 09/30/2024: Unremarkable ABG, 09/30/2024: Respiratory alkalosis CBC, 09/30/2024: Unremarkable CMP, 09/30/2024: Unremarkable TSH, 09/30/2024: 0.95 CT head, 09/30/2024: No acute intracranial Findings as visualized. MRI head, 10/01/2024: There is no acute intracranial process. vital signs Vital Sign Date Time Temp Pulse Resp B/P (MAP) Pulse Ox O2 Delivery O2 Flow Rate FiO2 10/02/24 13:01 98.4 111 16 120/87 (98) 98 98.4 10/02/24 08:00 Room Air* 0 21 Total Intake and Output 10/01/24 10/01/24 10/02/24 15:00 23:00 07:00 Intake Total 200 ml Output Total 1300 ml 500 ml Balance -1300 ml -300 ml medications Current Medications Medications Dose Ordered Sig/Denise Route Start Time Stop Time Status Last Admin Dose Admin Lorazepam 1 mg Q5MINP PRN IV 09/30/24 22:00 10/01/24 20:38 1 MG Levetiracetam 100 ml @ 400 mls/hr BID IV 10/01/24 10:00 10/02/24 09:32 400 MLS/HR Pantoprazole Sodium 40 mg DAILY IV 10/01/24 10:00 10/02/24 09:32 40 MG Ondansetron HCl 4 mg Q6HPRN PRN IV 10/01/24 01:00 Thiamine HCl 100 mg DAILY IV 10/01/24 10:00 10/02/24 09:32 100 MG Folic Acid 1 mg/ Dextrose 50.2 ml @ 200.8 mls/ hr DAILY INJ 10/01/24 10:00 10/02/24 09:31 200.8 MLS/HR Lorazepam 1 mg Q6HP PRN IV 10/01/24 16:30 10/02/24 15:47 1 MG Olanzapine 5 mg BID PO 10/02/24 22:00 objective General: the patient is well developed and nourished. No acute distress. MENTAL STATUS: Subjective SPEECH, LANGUAGE, HIGHER CORTICAL FUNCTION: No aphasia or dysarthria CRANIAL NERVES: Pupils are equal, round and reactive. EOMs full and conjugate. No nystagmus. Facial sensation ok in all three divisions bilaterally. Mandibular strength intact. Facial muscles symmetrical and strength intact. SENSATION: Sensation to touch and pinprick is NORMAL MOTOR: Normal tone in the upper and lower extremity. Normal muscle bulk. No fasciculations. No abnormal movements or posturing. Muscle strength is normal REFLEXES: Deep tendon reflexes are symmetrical. No pathological reflexes. CEREBELLAR/COORDINATION: Normal finger-nose test bilaterally GAIT/STATION: deferred laboratory and microbiology Laboratory Tests 10/02/24 06:21 Test 10/02/24 06:21 Range/Units Serum Glucose 92 74-106 mg/dL Problem List Altered mental status, resolved ? Subclinical seizure ? Metabolic/toxic encephalopathy ? Alcohol withdrawal syndrome Psychologic disorder Anxiety Depression Seizure disorder Alcohol withdrawal seizure ? Epileptic seizure, less likely Assessment/Plan Monitoring Supportive treatment Telemetry EEG Thiamine supplementation Folic acid supplementation Wean off Keppra 500 mg b.i.d. Ativan for seizure breakthrough GI prophylax Transferred to a psychiatry facility More recommendation per clinical course This medical document was created using an electronic medical record system with [employer] dictation system. Although this document has been carefully reviewed, there may still be some phonetic and typographical errors. These areas are purely typographical due to imperfections of the software programs, and do not reflect any compromise in the patient's medical care. Prognosis poor Plan discussed with: Patient, Other Total Time (mins): 40 ALEJANDRA FLYNN MD Oct 02, 2024 20:36
[2024-10-02 21:00] VITALS: BP 139/93; PULSE 103; RESP 18; TEMP 98; O2SAT 98
[2024-10-02] MEDS: OLANZapine 5 MG TAB PO SCH (22:41)
[2024-10-02] MEDS: levETIRAcetam 500 MG TAB PO ONE (22:42)
[2024-10-03] VITALS (7 sets, daily range): BP systolic 101–158; BP diastolic 72–89; PULSE 76–101; RESP 17–20; TEMP 97.7–98.4; O2SAT 98–100
[2024-10-03] MEDS: levETIRAcetam 500 MG TAB PO SCH (09:04)
[2024-10-03] MEDS: diphenhdrAMINE HCL 25 MG CAP PO ONE (20:21)
[2024-10-04] VITALS (8 sets, daily range): BP systolic 90–122; BP diastolic 54–78; PULSE 62–101; RESP 17–18; TEMP 96.7–99; O2SAT 96–100
--- NOTE | 2024-10-04 02:38 | DVHPNRES ---
Progress Note Date Seen: Oct 03, 2024 Resident Creating Document: CANDIDA VILLARREAL RESIDENT Has the PT tested + for MRSA If YES, has PT been informed?: No Medical Necessity Reason Pt with a Central, PICC or Fol: No Subjective Review of Systems Patient is a 28-year-old male with a past medical history of seizure disorder was brought to the ED via EMS from crisis center for altered level of consciousness. As per the ER physician documentation, Patient apparently went to the crisis Center today following an episode of seizure, was somewhat altered and denied any suicidal or homicidal ideation, denies nausea vomiting or diarrhea and he was at the crisis Center since 3 in the afternoon. Patient had elevated blood pressure and altered level of consciousness following which 911 was called and the patient transferred to [facility]. Patient was in a stuporous state when I went to examine and ask history from the patient, thus no information be obtained from the patient as he was obtunded but had oxygen saturation of 98% on room air, irregular breathing with respiratory rate 9 to 12, blood pressure 145/95 mmHg, mild tachycardia with a heart rate 100- 110/min. Pupils bilateral dilated equally and reactive, stat head CT was ordered along with urine drug screen and other labs. Patient has multiple admissions in the hospital under different record for altered level of consciousness and alcohol intoxication. Past medical history: Seizure disorder Surgical history: Unknown Social history: Unknown, multiple admissions for alcohol intoxication and substance use Home medications: Keppra 500 mg b.i.d. 10/01/2024: patient is A0X1, still drowsy, brain MRI didn't show any abnormalities, possible acute toxic encephalopathy, patient will be f/u in the wards, case discussed with Dr De La Garza neurologist. 10/02/2024: patient was alert AOX2 but started to be agitated, telepsych was consulted, patient will benefit of transfer to psych facility, olanzapine is started 10/03/2024: pending transfer to psych facility Objective vital signs Vital Sign Date Time Temp Pulse Resp B/P (MAP) Pulse Ox O2 Delivery O2 Flow Rate FiO2 10/04/24 01:00 98.4 85 18 103/71 (82) 96 98.4 10/03/24 08:00 Room Air* 0 21 Total Intake and Output 10/03/24 10/03/24 10/04/24 15:00 23:00 07:00 Intake Total 50.2 ml 1500 ml Balance 50.2 ml 1500 ml medications Current Medications Medications Dose Ordered Sig/Denise Route Start Time Stop Time Status Last Admin Dose Admin Lorazepam 1 mg Q5MINP PRN IV 09/30/24 22:00 10/01/24 20:38 1 MG Pantoprazole Sodium 40 mg DAILY IV 10/01/24 10:00 10/03/24 09:06 40 MG Ondansetron HCl 4 mg Q6HPRN PRN IV 10/01/24 01:00 Thiamine HCl 100 mg DAILY IV 10/01/24 10:00 10/03/24 09:06 100 MG Folic Acid 1 mg/ Dextrose 50.2 ml @ 200.8 mls/ hr DAILY INJ 10/01/24 10:00 10/03/24 09:05 200.8 MLS/HR Lorazepam 1 mg Q6HP PRN IV 10/01/24 16:30 10/02/24 15:47 1 MG Olanzapine 5 mg BID PO 10/02/24 22:00 10/03/24 20:23 5 MG Levetiracetam 250 mg BID PO 10/03/24 10:00 10/03/24 20:23 250 MG Examination Patient oriented ax2 Gen - no pallor, no icterus, no cyanosis, no clubbing, no LAD, no edema . Skin - Patients skin is warm and dry. HEENT - normocephalic, atraumatic, moist mucous membranes, pupils bilaterally dilated and reactive Neck - full ROM, no LAD, no JVD Pulmonary - B/L equal air entry with the right medial lower lobe inspiratory rales cardiovascular - normal S1,S2 heard. no murmurs heard. GI - soft abdomen without tenderness to palpation. no hepatospleenomegaly. Bowel sounds normoactive laboratory and microbiology Laboratory Tests 10/02/24 06:21 Test 10/02/24 06:21 Range/Units Serum Glucose 92 74-106 mg/dL Problem List/Assessment/Plan Problem List/Assessment/Plan Acute metabolic/toxic encephalopathy possibly due to drug intoxication Seizures with the underlying history of seizure disorder ? Drug intoxication Respiratory alkalosis Hypokalemia Alcohol withdrawal? Paranoid disorder Hallucinations - urine drug screen positive for benzodiazepines (possible medication for seizure vs abuse) UDS 10:00PM, Ativan 1 dose given at 12:00 AM - 12 lead ECG shows sinus tachycardia, no ST or T-wave abnormalities, no blocks - head CT shows no acute intracranial abnormality -brain MRI shows no acute intracranial abnormality - Keppra 1500 mg bolus given, 500 b.i.d. - IV fluids - electrolyte replacement - Ativan p.r.n. for seizures -Thiamine and folic acid -Dr De La Garza, neurologist consulted 10/02/2024: patient was alert AOX2 but started to be agitated, telepsych was consulted, patient will benefit of transfer to psych facility, olanzapine is started 10/03/2024: pending transfer to psych facility PUD prophylaxis: Protonix Goals of care discussed with the patient's nurse kelli for over 29 minutes. Full code Plan discussed with Dr. Miller Plan discussed with: Patient, Other (rn) My Orders My Orders Orders - CANDIDA VILLARREAL RESIDENT Procedure Category Date Status Time * Car [employer]aser CONS 10/03/24 Transmitted Consult 10:14 Discharge DISCHARGE 10/03/24 Transmitted 14:20 Imaging Transfer ORDERS 10/03/24 Transmitted Request 14:42 Date of Service: Oct 03, 2024 Billing Provider: JR MILLER MD Common Visit Codes: [id number] INP/OBS CARE(HIGH) CANDIDA VILLARREAL RESIDENT Oct 04, 2024 02:38 JR MILLER MD Oct 07, 2024 14:42
--- NOTE | 2024-10-04 17:14 | DVHPN2 ---
Subjective in bed resting Reviewed: H&P, Labs Changes from previous H/P or p: No Changes Objective Vitals Vital Signs Date Time Temp Pulse Resp B/P (MAP) Pulse Ox O2 Delivery O2 Flow Rate FiO2 10/04/24 13:30 98.1 80 17 112/69 (83) 99 98.1 10/04/24 08:00 Room Air* 0 21 Intake/Output Intake and Output 10/04/24 07:00 Intake Total 1900.2 ml Balance 1900.2 ml Intake Oral 1850 ml IV Total 50.2 ml # Voids 3 General Appearance: Alert, Oriented X3 HEENT: Atraumatic Lungs: Clear to auscultation Cardiovascular: Regular rate, Normal S1 Abdomen: Normal bowel sounds Medications Current Medications Medications Dose Ordered Sig/Denise Route Start Time Stop Time Status Last Admin Dose Admin Lorazepam 1 mg Q5MINP PRN IV 09/30/24 22:00 10/01/24 20:38 1 MG Pantoprazole Sodium 40 mg DAILY IV 10/01/24 10:00 10/04/24 10:11 40 MG Ondansetron HCl 4 mg Q6HPRN PRN IV 10/01/24 01:00 Thiamine HCl 100 mg DAILY IV 10/01/24 10:00 10/04/24 10:11 100 MG Folic Acid 1 mg/ Dextrose 50.2 ml @ 200.8 mls/ hr DAILY INJ 10/01/24 10:00 10/04/24 10:14 200.8 MLS/HR Lorazepam 1 mg Q6HP PRN IV 10/01/24 16:30 10/02/24 15:47 1 MG Olanzapine 5 mg BID PO 10/02/24 22:00 10/04/24 10:11 5 MG Levetiracetam 250 mg BID PO 10/03/24 10:00 10/04/24 10:11 250 MG Laboratory Results Laboratory Tests 10/02/24 06:21 Urinalysis Test 09/30/24 22:02 Urine Color Light-yellow (Yellow) Urine Clarity Clear (Clear) Urine pH 6.0 (5.0-9.0) Urine Specific [place] 1.011 (1.001-1.035) Urine Protein Negative (Negative) Urine Ketones 1+ (Negative) H Urine Blood Negative /uL (Negative) Urine Nitrite Negative (Negative) Urine Bilirubin Negative (Negative) Urine Urobilinogen Normal mg/dL (Negative) Urine Leukocyte Esterase Negative /uL (Negative) Urine RBC <1 /hpf (0 - 3) Urine Microscopic WBC 1 /HPF (0-3) Urine Squamous Epithelial Cells None seen /hpf (<5) Urine Bacteria None seen /hpf (None Seen) Urine Glucose Normal mg/dL (Normal) Assessment/Plan Assessment/Plan Acute metabolic/toxic encephalopathy possibly due to drug intoxication Seizures with the underlying history of seizure disorder ? Drug intoxication Respiratory alkalosis Hypokalemia Alcohol withdrawal? Paranoid disorder Hallucinations - urine drug screen positive for benzodiazepines (possible medication for seizure vs abuse) UDS 10:00PM, Ativan 1 dose given at 12:00 AM - 12 lead ECG shows sinus tachycardia, no ST or T-wave abnormalities, no blocks - head CT shows no acute intracranial abnormality -brain MRI shows no acute intracranial abnormality - Keppra 1500 mg bolus given, 500 b.i.d. - IV fluids - electrolyte replacement - Ativan p.r.n. for seizures -Thiamine and folic acid -Dr De La Garza, neurologist consulted 10/02/2024: patient was alert AOX2 but started to be agitated, telepsych was consulted, patient will benefit of transfer to psych facility, olanzapine is started 10/03/2024: pending transfer to psych facility 10/04 pending transfer PUD prophylaxis: Protonix Goals of care discussed with the patient's nurse kelli for over 29 minutes. Full code Plan discussed with: Patient Date of Service: Oct 04, 2024 Billing Provider: ROBINSON HERNÁNDEZ MD Common Visit Codes: [id number] INP/OBS CARE(HIGH) ROBINSON HERNÁNDEZ MD Oct 04, 2024 17:14
[2024-10-05] VITALS (7 sets, daily range): BP systolic 104–119; BP diastolic 66–78; PULSE 61–97; RESP 16–17; TEMP 97.8–98.3; O2SAT 95–98
--- NOTE | 2024-10-05 11:50 | DVHPNRES ---
Progress Note Date Seen: Oct 05, 2024 Resident Creating Document: NEIL HPOKINS MD Has the PT tested + for MRSA If YES, has PT been informed?: No Medical Necessity Reason Pt with a Central, PICC or Fol: No Subjective Review of Systems Patient is a 28-year-old male with a past medical history of seizure disorder was brought to the ED via EMS from crisis center for altered level of consciousness. As per the ER physician documentation, Patient apparently went to the crisis Center today following an episode of seizure, was somewhat altered and denied any suicidal or homicidal ideation, denies nausea vomiting or diarrhea and he was at the crisis Center since 3 in the afternoon. Patient had elevated blood pressure and altered level of consciousness following which 911 was called and the patient transferred to [facility]. Patient was in a stuporous state when I went to examine and ask history from the patient, thus no information be obtained from the patient as he was obtunded but had oxygen saturation of 98% on room air, irregular breathing with respiratory rate 9 to 12, blood pressure 145/95 mmHg, mild tachycardia with a heart rate 100- 110/min. Pupils bilateral dilated equally and reactive, stat head CT was ordered along with urine drug screen and other labs. Patient has multiple admissions in the hospital under different record for altered level of consciousness and alcohol intoxication. Past medical history: Seizure disorder Surgical history: Unknown Social history: Unknown, multiple admissions for alcohol intoxication and substance use Home medications: Keppra 500 mg b.i.d. 10/01/2024: patient is A0X1, still drowsy, brain MRI didn't show any abnormalities, possible acute toxic encephalopathy, patient will be f/u in the wards, case discussed with Dr De La Garza neurologist. 10/02/2024: patient was alert AOX2 but started to be agitated, telepsych was consulted, patient will benefit of transfer to psych facility, olanzapine is started 10/03/2024: pending transfer to psych facility 10/05/2024: pending transfer to psych facility, new telepsych consult placed Objective vital signs Vital Sign Date Time Temp Pulse Resp B/P (MAP) Pulse Ox O2 Delivery O2 Flow Rate FiO2 10/05/24 09:00 98.0 97 16 112/78 (89) 98 98.0 10/05/24 08:00 Room Air* 0 21 Total Intake and Output 6/710/04/24 10/05/24 15:00 23:00 07:00 Intake Total 50.2 ml 1600 ml 1300 ml Balance 50.2 ml 1600 ml 1300 ml medications Current Medications Medications Dose Ordered Sig/Denise Route Start Time Stop Time Status Last Admin Dose Admin Lorazepam 1 mg Q5MINP PRN IV 09/30/24 22:00 10/01/24 20:38 1 MG Pantoprazole Sodium 40 mg DAILY IV 10/01/24 10:00 10/05/24 10:06 40 MG Ondansetron HCl 4 mg Q6HPRN PRN IV 10/01/24 01:00 Lorazepam 1 mg Q6HP PRN IV 10/01/24 16:30 10/02/24 15:47 1 MG Olanzapine 5 mg BID PO 10/02/24 22:00 10/05/24 10:07 5 MG Levetiracetam 250 mg BID PO 10/03/24 10:00 10/05/24 10:07 250 MG Folic Acid 1 mg DAILY PO 10/06/24 10:00 Thiamine HCl 100 mg DAILY PO 10/06/24 10:00 Examination Patient oriented ax2 Gen - no pallor, no icterus, no cyanosis, no clubbing, no LAD, no edema . Skin - Patients skin is warm and dry. HEENT - normocephalic, atraumatic, moist mucous membranes, pupils bilaterally dilated and reactive Neck - full ROM, no LAD, no JVD Pulmonary - B/L equal air entry with the right medial lower lobe inspiratory rales cardiovascular - normal S1,S2 heard. no murmurs heard. GI - soft abdomen without tenderness to palpation. no hepatospleenomegaly. Bowel sounds normoactive laboratory and microbiology Laboratory Tests 10/02/24 06:21 Test 10/02/24 06:21 Range/Units Serum Glucose 92 74-106 mg/dL Problem List/Assessment/Plan Problem List/Assessment/Plan Acute metabolic/toxic encephalopathy possibly due to drug intoxication Seizures with the underlying history of seizure disorder ? Drug intoxication Respiratory alkalosis Hypokalemia Alcohol withdrawal? Paranoid disorder Hallucinations - urine drug screen positive for benzodiazepines (possible medication for seizure vs abuse) UDS 10:00PM, Ativan 1 dose given at 12:00 AM - 12 lead ECG shows sinus tachycardia, no ST or T-wave abnormalities, no blocks - head CT shows no acute intracranial abnormality -brain MRI shows no acute intracranial abnormality - Keppra 1500 mg bolus given, 500 b.i.d. - IV fluids - electrolyte replacement - Ativan p.r.n. for seizures -Thiamine and folic acid -Dr DeL a Garza, neurologist consulted 10/02/2024: patient was alert AOX2 but started to be agitated, telepsych was consulted, patient will benefit of transfer to psych facility, olanzapine is started 10/03/2024: pending transfer to psych facility 10/05/2024: pending transfer to psych facility, new telepsych consult placed PUD prophylaxis: Protonix Goals of care discussed with the patient's nurse kelli for over 29 minutes. Full code Plan discussed with Dr. Hopkins Plan discussed with: Patient, Other My Orders My Orders Orders - CANDIDA VILLARREAL RESIDENT Procedure Category Date Status Time Soc Telemed Psych CONS 10/05/24 Transmitted Consult 10:10 Communication Order ORDERS 10/05/24 Transmitted 10:10 Date of Service: Oct 05, 2024 Billing Provider: NEIL HOPKINS MD Common Visit Codes: [id number] INP/OBS CARE(HIGH) CANDIDA VILLARREAL RESIDENT Oct 05, 2024 11:50 NEIL HOPKINS MD Oct 06, 2024 22:34
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
[2024-10-05] MEDS ORDERED: SERT25TA84 PO (16:51)
[2024-10-05] MEDS ORDERED: CLON0.1T PO (16:52)
[2024-10-05] MEDS ORDERED: PROP60CA34 PO (16:52)
[2024-10-05] MEDS: SERTRALINE HCL 50 MG TAB PO SCH (17:34)
[2024-10-05] MEDS: cloNIDine HCL 0.1 MG TAB PO ONE (21:57)
[2024-10-05] MEDS: PROPRANOLOL HCL 20 MG TAB PO SCH (21:59)
--- NOTE | 2024-10-05 23:04 | DVHPN2 ---
Progress Note - Dictate Date Seen: Oct 05, 2024 Has the PT tested + for MRSA If YES, has PT been informed?: No Medical Necessity Reason Pt with a Central, PICC or Fol: No Subjective Mr. Saint Floyd is a 28 years old gentleman with a history of seizure disorder, the patient was brought to the [facility] ER on 09/30/2024 with a chief company of altered mental status. I have seen and examined the patient, I have discussed with his nurse and sitter, he was alert and oriented x3, but is not very pleasant, and he was agitated from time to time Plasma alcohol, 09/30/2024: Normal UDS, 09/30/2024: Benzo Urinalysis, 09/30/2024: Unremarkable ABG, 09/30/2024: Respiratory alkalosis CBC, 09/30/2024: Unremarkable CMP, 09/30/2024: Unremarkable TSH, 09/30/2024: 0.95 CT head, 09/30/2024: No acute intracranial Findings as visualized. MRI head, 10/01/2024: There is no acute intracranial process. vital signs Vital Sign Date Time Temp Pulse Resp B/P (MAP) Pulse Ox O2 Delivery O2 Flow Rate FiO2 10/05/24 21:59 71 119/76 10/05/24 20:00 97 Room Air* 0 21 10/05/24 17:00 98.3 16 98.3 Total Intake and Output 10/04/24 10/04/24 10/05/24 15:00 23:00 07:00 Intake Total 50.2 ml 1600 ml 1300 ml Balance 50.2 ml 1600 ml 1300 ml medications Current Medications Medications Dose Ordered Sig/Denise Route Start Time Stop Time Status Last Admin Dose Admin Lorazepam 1 mg Q5MINP PRN IV 09/30/24 22:00 10/01/24 20:38 1 MG Pantoprazole Sodium 40 mg DAILY IV 10/01/24 10:00 10/05/24 10:06 40 MG Ondansetron HCl 4 mg Q6HPRN PRN IV 10/01/24 01:00 Lorazepam 1 mg Q6HP PRN IV 10/01/24 16:30 10/02/24 15:47 1 MG Olanzapine 5 mg BID PO 10/02/24 22:00 10/05/24 21:56 5 MG Levetiracetam 250 mg BID PO 10/03/24 10:00 10/05/24 22:00 250 MG Folic Acid 1 mg DAILY PO 10/06/24 10:00 Thiamine HCl 100 mg DAILY PO 10/06/24 10:00 Sertraline HCl 12.5 mg DAILY PO 10/05/24 17:00 10/05/24 17:34 12.5 MG Propranolol HCl 10 mg BID PO 10/05/24 22:00 10/05/24 21:59 10 MG objective General: the patient is well developed and nourished. No acute distress. MENTAL STATUS: Subjective SPEECH, LANGUAGE, HIGHER CORTICAL FUNCTION: No aphasia or dysarthria CRANIAL NERVES: Pupils are equal, round and reactive. EOMs full and conjugate. No nystagmus. Facial sensation ok in all three divisions bilaterally. Mandibular strength intact. Facial muscles symmetrical and strength intact. SENSATION: Sensation to touch and pinprick is NORMAL MOTOR: Normal tone in the upper and lower extremity. Normal muscle bulk. No fasciculations. No abnormal movements or posturing. Muscle strength is normal REFLEXES: Deep tendon reflexes are symmetrical. No pathological reflexes. CEREBELLAR/COORDINATION: Normal finger-nose test bilaterally GAIT/STATION: deferred laboratory and microbiology Laboratory Tests 10/02/24 06:21 Test 10/02/24 06:21 Range/Units Serum Glucose 92 74-106 mg/dL Problem List Altered mental status, resolved ? Subclinical seizure ? Metabolic/toxic encephalopathy ? Alcohol withdrawal syndrome Psychologic disorder Anxiety Depression Seizure disorder Alcohol withdrawal seizure ? Epileptic seizure, less likely Assessment/Plan Monitoring Supportive treatment Telemetry EEG Thiamine supplementation Folic acid supplementation D/C Keppra 250 mg b.i.d. Ativan for seizure breakthrough GI prophylax Transferred to a psychiatry facility More recommendation per clinical course This medical document was created using an electronic medical record system with [employer] dictation system. Although this document has been carefully reviewed, there may still be some phonetic and typographical errors. These areas are purely typographical due to imperfections of the software programs, and do not reflect any compromise in the patient's medical care. Prognosis poor Plan discussed with: Other ALEJANDRA FLYNN MD Oct 05, 2024 23:04
[2024-10-06 05:01] VITALS: BP 117/62; PULSE 58; RESP 17; TEMP 98.2; O2SAT 98
[2024-10-06 08:00] VITALS: PULSE 61; PULSE 74; RESP 16; O2SAT 100
[2024-10-06 09:00] VITALS: BP 110/82; PULSE 74; RESP 16; TEMP 98.2; O2SAT 100
[2024-10-06] MEDS: THIAMINE HCL 100 MG TAB PO SCH (09:17)
[2024-10-06] MEDS: FOLIC ACID 1 MG TAB PO SCH (09:18)
[2024-10-06 12:01] VITALS: BP 108/61; PULSE 78; RESP 12; TEMP 98; O2SAT 98
[2024-10-06 12:04] VITALS: BP 108/61; PULSE 78; RESP 12; TEMP 98; O2SAT 98
--- NOTE | 2024-10-06 12:31 | DVHDSRES ---
Discharge Summary Date of Admission Resident Creating Document: CANDIDA VILLARREAL RESIDENT Sep 30, 2024 at 23:20 Date of Discharge: Oct 03, 2024 Admitting Diagnosis Acute metabolic/toxic encephalopathy possibly due to drug intoxication Labs/Diagnostic Data: Laboratory Results Test 10/02/24 06:21 10/01/24 08:33 09/30/24 22:24 09/30/24 22:20 White Blood Count 10.3 10^3/uL (4.4-10.8) Red Blood Count 4.83 10^6/uL (4.5-5.90) Hemoglobin 15.1 g/dL (13.5-17.5) Hematocrit 43.9 % (41.0-53.0) Mean Corpuscular Volume 90.8 fL (80.0-100.0) Mean Corpuscular Hemoglobin 31.3 pg (28.0-32.0) Mean Corpuscular Hemoglobin Concent 34.5 g/dL (32.0-36.0) Red Cell Distribution Width 12.4 % (11.8-14.3) Platelet Count 319 10^3/uL (140-450) Mean Platelet Volume 8.9 fL (6.9-10.8) Neutrophils (%) (Auto) % (37.0-80.0) Lymphocytes (%) (Auto) % (10.0-50.0) Monocytes (%) (Auto) % (0.0-12.0) Basophils (%) (Auto) % (0.0-2.0) Neutrophils # (Auto) 10 ^3/uL (1.6-8.6) Lymphocytes # (Auto) 10 ^3/uL (0.4-5.4) Monocytes # (Auto) 10 ^3/uL (0-1.3) Differential Total Cells Counted 100.0 (100) Neutrophils % (Manual) 71 (37.0-80.0) Band Neutrophils % (Manual) 0 Lymphocytes % (Manual) 26 (10.0-50.0) Monocytes % (Manual) 3 (0-12) Eosinophils % (Manual) 0 (0-7) Basophils % (Manual) 0 (0.0-2.0) Metamyelocytes % (manual) 0 Myelocytes % (Manual) 0 Promyelocytes % (Manual) 0 Blast Cells % (Manual) 0 Reactive Lymphocytes 0 Platelet Estimate Adequate Sodium Level 143 mmol/L (136-145) Potassium Level 3.8 mmol/L (3.5-5.1) Chloride Level 107 mmol/L (98-107) Carbon Dioxide Level 26 mmol/L (20-31) Anion Gap 10 (5-15) Blood Urea Nitrogen 10 mg/dL (9-23) Creatinine 0.70 mg/dL (0.700-1.30) Glomerular Filtration Rate Calc 130 mL/min (>90) BUN/Creatinine Ratio 14.3 (10.0-20.0) Serum Glucose 92 mg/dL (74-106) Calcium Level 9.5 mg/dL (8.7-10.4) Total Bilirubin 1.1 mg/dL (0.2-1.0) Aspartate Amino Transferase (AST) 13 U/L (13-40) Alanine Aminotransferase (ALT) < 9 U/L (7-40) Alkaline Phosphatase 80 U/L (46-116) Total Protein 7.0 g/dL (5.7-8.2) Albumin 4.3 g/dL (3.2-4.8) Lactic Acid Level 1.4 mmol/L (0.4-2.0) Blood Gas Specimen Type Arterial Blood Gas Sample Site Left radial Blood Gas Patient Temperature 37.0 Arterial Blood Date Drawn [id number] Arterial Blood pH 7.494 (7.350-7.450) Arterial Blood Partial Pressure CO2 29.7 mmHg (35.0-48.0) Arterial Blood Partial Pressure O2 89.0 mmHg (83.0-108.0) Arterial Blood HCO3 22.3 mmol/L (21.0-28.0) Arterial Blood Oxygen Saturation 97.2 % (94.0-98.0) Arterial Blood Base Excess 0.2 mmol/L (-2.0-3.0) Arterial Blood Oxyhemoglobin 95.9 % (94.0-98.0) Arterial Blood Carboxyhemoglobin 0.8 % (0.5-1.5) Arterial Blood Methemoglobin 0.5 % (0.0-1.5) Norm Test Modified Blood Gas Total Hemoglobin 15.10 g/dL (13.5-17.5) Blood Gas Liter Flow 0.00 Blood Gas Modality Room air Blood Gas Spontaneous Rate 20 FiO2 % 21.0 Specimen Drawn By Dimitri david rt Test 09/30/24 22:02 09/30/24 20:04 Urine Color Light-yellow (Yellow) Urine Clarity Clear (Clear) Urine pH 6.0 (5.0-9.0) Urine Specific Thornton 1.011 (1.001-1.035) Urine Protein Negative (Negative) Urine Ketones 1+ (Negative) Urine Blood Negative /uL (Negative) Urine Nitrite Negative (Negative) Urine Bilirubin Negative (Negative) Urine Urobilinogen Normal mg/dL (Negative) Urine Leukocyte Esterase Negative /uL (Negative) Urine RBC <1 /hpf (0 - 3) Urine Microscopic WBC 1 /HPF (0-3) Urine Squamous Epithelial Cells None seen /hpf (<5) Urine Bacteria None seen /hpf (None Seen) Urine Glucose Normal mg/dL (Normal) Urine Opiates Screen Neg (NEGATIVE) Urine Fentanyl Screen Neg (NEGATIVE) Urine Barbiturates Screen Neg (NEGATIVE) Urine Phencyclidine Screen Neg (NEGATIVE) Urine Amphetamines Screen Neg (NEGATIVE) Urine Benzodiazepines Screen Pos (NEGATIVE) Urine Cocaine Screen Neg (NEGATIVE) Urine Cannabinoids Screen Neg (NEGATIVE) Eosinophils (%) (Auto) 0.0 % (0.0-7.0) Eosinophils # (Auto) 0 10 ^3/uL (0-0.8) Basophils # (Auto) 0 10 ^3/uL (0-0.2) Nucleated Red Blood Cells 0.1 % Prothrombin Time 11.4 sec (9.3-11.8) Prothrombin Time INR 1.08 (0.9-1.15) Activated Partial Thromboplast Time 28.0 SEC (24.5-34.5) Serum Osmolality 288 mOsm/kg (278-298) Phosphorus Level 3.8 mg/dL (2.4-5.1) Magnesium Level 1.8 mg/dL (1.6-2.6) Thyroid Stimulating Hormone (TSH) 0.95 uIU/mL (0.55-4.78) Salicylates Level < 3.0 mg/dL (-30) Acetaminophen Level 2.0 UG/ML (10.0-20.0) Plasma/Serum Blood Alcohol < 3.0 mg/dL (<10) Other Laboratory Tests 10/02/24 06:21 Brief Hx & Hospital Course: A 28-year-old male with a history of seizure disorder, multiple admissions for altered mental status, alcohol use, and suspected drug intoxication, was admitted from a crisis center after an episode of seizure and altered level of consciousness. Upon arrival, he was obtunded, with BP 145/95, HR [id number], RR 912, SpO2 98% on room air. Initial evaluation raised concerns for acute toxic/metabolic encephalopathy secondary to drug intoxication. Urine toxicology only was positive for benzodiazepines. Neurology was consulted, and brain MRI and head CT were negative for acute pathology. The patient gradually improved over the following days. On 10/02 he was AOx2 but agitated, and olanzapine was initiated after a telepsych consult. He remained medically stable and was pending transfer to a psychiatric facility for further care. Psychiatry determined the patient had PTSD and MDD, but not schizophrenia. He denied current hallucinations and met no criteria for 5150 hold. Medications on Discharge: Keppra 500 mg BID Zoloft 12.5 mg daily Clonidine 0.1 mg PO QHS Inderal 10 mg PO BID Discharge Condition: Medically stable, awake, alert, and oriented, no longer paranoid, emotionally improved. No suicidal or homicidal ideation. Cleared for outpatient psychiatric follow-up. Disposition: Discharged to outpatient care with instructions to follow up with intensive outpatient psychiatric services. He was transferred to a recuperative care facility Follow-up Appointments: [facility] for referral to Outpatient psychiatry Case discussed with Dr Allen Consults/Reason for consult neurology due to possible seizures psych due to paraoind episodes Operations or Procedures MRI BRAIN WITHOUT CONTRAST CLINICAL HISTORY: ALOC, seizure TECHNIQUE: Multiplanar, multisequence MR images of the brain without intravenous contrast. Comparison: CT head 01/11/2023 FINDINGS: There is no restricted diffusion. The delgado and white matter signal is appropriate. There is no evidence of hemorrhage, mass, mass effect or midline shift. There is no hydrocephalus or extra-axial fluid collection. The visualized intracranial vasculature demonstrates appropriate flow-voids. The sagittal midline structures appear unremarkable. The craniocervical junction is within normal limits. The calvarium demonstrates normal marrow signal. The paranasal sinuses and mastoid air cells are clear. IMPRESSION: 1. There is no acute intracranial process. Condition at Discharge: Poor Final Diagnosis/Problems List PTSD MDD Acute metabolic/toxic encephalopathy possibly due to drug intoxication Seizures with the underlying history of seizure disorder ? Drug intoxication Respiratory alkalosis Hypokalemia Alcohol withdrawal? Paranoid disorder Hallucinations Discharge Disposition: Recuperative Care Facility Discharge Instruct/Medications Diet: Regular Activity: No Restrictions, As Tolerated Discharge Statement: "Patient was advised to return to the ER or call 911 if any headaches, dizziness, shortness of breath, chest pain, abdominal pain, bleeding, fevers, or worsening of medical condition. Patient was counseled about treatment plan, medications, possible side effects, patientverbalized understanding. All questions were answered to the best of my ability. This discharge took greater then 30 minutes in planning, reviewing documentation, counseling the patient, and discussing with other team members." ASSESSMENT ASSESSMENT Assessment paranoid disorder Date of Service: Oct 03, 2024 Billing Provider: JR ALLEN MD Common Visit Codes: 02776-YKM/OBS DISCH DAY >30min CANDIDA VILLARREAL RESIDENT Oct 06, 2024 12:31 JR ALLEN MD Oct 09, 2024 11:50
== END 2024-10-06 14:00 | disposition home or self-care (01) | DRG 52 ==
LOC: EDBD 19:42 → ER 19:46 → EDBD 19:46 → EDSEX 19:46 → EDUNIT# 23:20 → OVERFLOW 23:20 → TELE-WESTW 10-01 20:57 → TELE-CENTR 10-04 21:38
PROVIDERS: ADMIT Student in an Organized Health Care Education/Training Program; ATTEND Student in an Organized Health Care Education/Training Program
DX: G92.8 Other toxic encephalopathy (principal); E87.3 Alkalosis; G40.409 Other generalized epilepsy and epileptic syndromes, not intractable, without status epilepticus; E11.9 Type 2 diabetes mellitus without complications; F10.239 Alcohol dependence with withdrawal, unspecified; F41.9 Anxiety disorder, unspecified; E87.6 Hypokalemia; F60.0 Paranoid personality disorder; F19.129 Other psychoactive substance abuse with intoxication, unspecified; F43.10 Post-traumatic stress disorder, unspecified; T42.4X5A Adverse effect of benzodiazepines, initial encounter; Z82.49 Family history of ischemic heart disease and other diseases of the circulatory system; Z59.00 Homelessness unspecified; Z79.899 Other long term (current) drug therapy; Z91.51 Personal history of suicidal behavior; Y92.89 Other specified places as the place of occurrence of the external cause; F32.9 Major depressive disorder, single episode, unspecified
CPT/HCPCS: 36415; 36600; 70450; 70551; 80048; 80053; 80307; 80320; 80329; 81001; 82805; 83605; 83735; 83930; 84100; 84443; 85007; 85025; 85027; 85610; 85730; 93005; 96365; 99291; G0378; J2470; J3480; J7060

== ENCOUNTER 2024-12-30 22:07 | Emergency (ER) | payer MEDICAID ==
[~2024-12-30] VITALS: Ht 172.7 cm; Wt 77.0 kg
[~2024-12-30 22:07] MED LIST changes: +CLON0.1T PO; -GABA-1250 PO; -KEP500T PO; -LEVE500T3 PO; +LEVE500T40 PO; -NALT50TA5 PO; +PROP60CA34 PO; -SERT-160 PO; -SERT-206 PO; +SERT25TA84 PO; -TRAZ-227 PO
--- NOTE | 2024-12-30 22:38 | ED.PDOC ---
HPI (NEURO) HPI Comments 29 year old male presents to the ED via EMS with a chief complaint of seizure onset today (12/30/24). Per EMS, patient has a PMHx of alcohol induced seizures, was with friends when he experienced a seizure. He was 3 months sober, began drinking for the past 3 days, last drink was today around 18:00, was drinking Vodka. Patient states he was prescribed Keppra, is not compliant with his medication. Denies chest pain, shortness of breath, vomiting, diarrhea, dysuria, fever, chills. No other symptoms or modifying factors present at this time. Chief Complaint: Seizure Time Seen by MD: 22:10 Reviewed Notes: Medications, Allergies Information Source: Patient, Emergency Med Personnel Mode of Arrival: EMS Severity: Moderate Timing: Hours Duration: Since onset Prehospital treatment: None Seizure Location: Generalized Onset: At rest Circumstances: Spontaneous Before: Normal History of: Seizure Disorder Modifying factors: Nothing Associated Signs and Symptoms: Other Past Medical History PAST MEDICAL HISTORY: Seizures Surgical History: Denies all surgeries Family History Family History: No family hx of Cancer, No family hx of DM, No family hx of Heart asha Social History Smoker: Non-Smoker Alcohol: Denies ETOH Use Drugs: Denies Drug Use Lives In: Home Constitutional: denies: chills, diaphoresis, fatigue, fever, malaise, sweats, weakness, others EENTM: denies: blurred vision, double vision, ear bleeding, ear discharge, ear drainage, ear pain, ear ringing, eye pain, eye redness, hearing loss, mouth pain, mouth swelling, nasal discharge, nose bleeding, nose congestion, nose pain, photophobia, tearing, throat pain, throat swelling, voice changes, others Respiratory: denies: cough, hemoptysis, orthopnea, SOB at rest, shortness of breath, SOB with excertion, stridor, wheezing, others Cardiovascular: denies: chest pain, dizzy spells, diaphoresis, Dyspnea on exertion, edema, irregular heart beat, left arm pain, lightheadedness, palpitations, PND, syncope, others Gastrointestinal: denies: abdomen distended, abdominal pain, blood streaked bowels, constipated, diarrhea, dysphagia, difficulty swallowing, hematemesis, melena, nausea, poor appetite, poor fluid intake, rectal bleeding, rectal pain, vomiting, others Genitourinary: denies: burning, dysuria, flank pain, frequency, hematuria, incontinence, penile discharge, penile sore, pain, testicle pain, testicle swelling, urgency, others Neurological: reports: seizure; denies: dizziness, fainting, headache, left sided numbness, left sided weakness, numbness, paresthesia, pre-existing deficit, right sided numbness, right sided weakness, speech problems, tingling, tremors, weakness, others Musculoskeletal: denies: back pain, gout, joint pain, joint swelling, muscle pain, muscle stiffness, neck pain, others Integumetry: denies: bruises, change in color, change in hair/nails, dryness, laceration, lesions, lumps, rash, wounds, others Allergic/Immunocompromised: denies: Difficulty Healing, Frequent Infections, Hives, Itching, others Hematologic/Lymphatic: denies: anemia, blood clots, easy bleeding, easy bruising, swollen glands, others Endocrine: denies: excessive hunger, excessive sweating, excessive thirst, excessive urination, flushing, intolerance to cold, intolerance to heat, unexplained weight gain, unexplained weight loss, others Psychiatric: reports: others (etoh intoxication); denies: anxiety, bipolar disorder, depression, hopeless, panic disorder, schizophrenia, sleepless, suicidal All Other Systems: Reviewed and Negative Physical Exam General Appearance: Normal HEENT: Normal ENT Inspection, Pharynx Normal, TMs Normal Neck: Full Range of Motion, Non-Tender, Normal, Normal Inspection Respiratory: Chest Non-Tender, Lungs Clear, No Accessory Muscle Use, No Respiratory Distress, Normal Breath Sounds Cardiovascular: No Edema, No JVD, No Murmur, No Gallop, Normal Peripheral Pulses, Regular Rate/Rhythm Breast Exam: Deferred Gastrointestinal: No Organomegaly, Non Tender, No Pulsatile Mass, Normal Bowel Sounds, Soft Genitalia: Deferred Pelvic: Deferred Rectal: Deferred Extremities: No calf tenderness, Normal capillary refill, Normal inspection, Normal range of motion, Non-tender, No pedal edema Musculoskeletal : Apperance: Normal Neurologic: Alert, writer editor II-XII nml as Tested, No Motor Deficits, Normal Affect, Normal Mood, No Sensory Deficits Cerebellar Function: Normal Reflexes: Normal Skin: Dry, Normal Color, Warm Lymphatic: No Adenopathy Was a procedure done? Was a procedure done?: No X-Ray, Labs, Meds, VS Vital Signs Date Time Temp Pulse Resp B/P (MAP) Pulse Ox O2 Delivery O2 Flow Rate FiO2 12/31/24 10:28 98.5 12/31/24 10:25 73 16 112/80 (91) 94 12/31/24 09:30 98.6 76 18 100/74 (83) 98 98.6 12/31/24 09:30 76 16 98 Room Air* 0 21 12/31/24 08:26 74 16 97 Room Air* 0 21 12/31/24 08:26 98.1 74 16 138/88 (105) 97 98.1 12/31/24 04:00 77 12/31/24 02:48 19 94 Room Air* 0 12/31/24 01:00 78 20 107/64 (78) 95 12/31/24 00:00 96 12/30/24 23:07 98.1 100 20 125/80 (95) 98 98.1 12/30/24 23:07 100 20 98 Room Air* 0 21 12/30/24 22:20 97.8 109 16 123/81 98 97.8 Lab Test 12/30/24 23:23 Range/Units White Blood Count 5.2 4.4-10.8 10^3/uL Red Blood Count 4.40 L 4.5-5.90 10^6/uL Hemoglobin 14.3 13.5-17.5 g/dL Hematocrit 41.3 41.0-53.0 % Mean Corpuscular Volume 93.8 80.0-100.0 fL Mean Corpuscular Hemoglobin 32.4 H 28.0-32.0 pg Mean Corpuscular Hemoglobin Concent 34.6 32.0-36.0 g/dL Red Cell Distribution Width 12.5 11.8-14.3 % Platelet Count 291 140-450 10^3/uL Mean Platelet Volume 7.6 6.9-10.8 fL Neutrophils (%) (Auto) 35.7 L 37.0-80.0 % Lymphocytes (%) (Auto) 52.7 H 10.0-50.0 % Monocytes (%) (Auto) 9.0 0.0-12.0 % Eosinophils (%) (Auto) 1.6 0.0-7.0 % Basophils (%) (Auto) 1.0 0.0-2.0 % Neutrophils # (Auto) 1.8 1.6-8.6 10 ^3/uL Lymphocytes # (Auto) 2.7 0.4-5.4 10 ^3/uL Monocytes # (Auto) 0.5 0-1.3 10 ^3/uL Eosinophils # (Auto) 0.1 0-0.8 10 ^3/uL Basophils # (Auto) 0.1 0-0.2 10 ^3/uL Nucleated Red Blood Cells 0.1 % Sodium Level 143 136-145 mmol/L Potassium Level 3.7 3.5-5.1 mmol/L Chloride Level 105 98-107 mmol/L Carbon Dioxide Level 27 20-31 mmol/L Anion Gap 11 5-15 Blood Urea Nitrogen 8 L 9-23 mg/dL Creatinine 0.68 L 0.700-1.30 mg/dL Glomerular Filtration Rate Calc 131 >90 mL/min BUN/Creatinine Ratio 11.8 10.0-20.0 Serum Glucose 117 H 74-106 mg/dL Calcium Level 8.6 L 8.7-10.4 mg/dL Plasma/Serum Blood Alcohol 164.3 H <10 mg/dL Current Medications Medications (Trade) Dose Ordered Sig/Denise Route Start Time Stop Time Status Last Admin Pantoprazole Sodium (Protonix) 40 mg ONCE ONCE IV 12/31/24 09:00 12/31/24 09:01 DC 12/31/24 10:27 Ketorolac Tromethamine (Toradol Injection) 15 mg ONCE ONCE IV 12/31/24 09:00 12/31/24 09:01 DC 12/31/24 10:28 Acetaminophen (Tylenol Tablet) 650 mg ONCE ONCE PO 12/31/24 09:00 12/31/24 09:01 DC 12/31/24 10:28 X-Ray, Labs, Meds, VS Comment Seen in the emergency department eventful patient came in food with a blood alcohol intoxication and a seizure CBC normal Blood alcohol 164.3 BNP negative Patient has been observed for several hours is conscious Site and coherent in his ready to be discharged home Time of 1ST Reevaluation: 22:40 Reevaluation 1ST: Unchanged Time of 2ND Reevaluation: 10:00 Reevaluation 2ND: Improved Consultation: PCP, Neurology Patient Education/Counseling: Diagnosis, Treatment, Prognosis Family Education/Counseling: No Family Present Departure 1 Departure Time of Disposition: 10:10 Impression: Primary Impression: Alcohol intoxication Qualified Codes: F10.920 - Alcohol use, unspecified with intoxication, uncomplicated Additional Impressions: Seizure disorder Medication refill Disposition: HOME / SELF CARE / HOMELESS Condition: Fair Additional Instructions: Follow up with your PCP e-Prescriptions Levetiracetam (Keppra) 500 Mg Tab 1 TAB PO BID for 30 Days, #60 TAB 3 Refills Prov: LAVON FLOYD MD 12/31/24 Discharged With: Self Critical Care Note Critical Care Time?: No Stability Stability form required: No Heart Score Heart Score: Heart Score Response (Comments) Value History N/A 0 EKG N/A 0 Age <45 0 Risk Factors 1 or 2 risk factors 1 Troponin N/A 0 Total 1 I personally scribed for LLOYD ESQUIVEL MD ([email or web address]) on 12/30/24 at 22:38. Electronically submitted by Winter Tate ([email or web address]). LLOYD ESQUIVEL MD Dec 30, 2024 22:38 LAVON FLOYD MD Dec 31, 2024 10:01
[2024-12-30 23:07] VITALS: PULSE 100; RESP 20; O2SAT 98
[2024-12-30 23:34] LABS: Hematocrit 41.3 % (41.0-53.0); Hemoglobin 14.3 g/dL (13.5-17.5); Mean Corpuscular Hemoglobin 32.4 pg (28.0-32.0); Mean Corpuscular Volume 93.8 fL (80.0-100.0); Nucleated Red Blood Cells % 0.1 %
[2024-12-30 23:45] LABS: Chloride 105 mmol/L (98-107); Potassium 3.7 mmol/L (3.5-5.1); Sodium 143 mmol/L (136-145)
[2024-12-30 23:46] LABS: Anion Gap 11 (5-15); Carbon Dioxide 27 mmol/L (20-31)
[2024-12-30 23:47] LABS: Calcium 8.6 mg/dL (8.7-10.4)
[2024-12-30 23:52] LABS: BUN/Creatinine Ratio 11.8 (10.0-20.0)
[2024-12-31 00:02] LABS: Blood Urea Nitrogen 8 mg/dL (9-23); Glucose 117 mg/dL (74-106)
[2024-12-31 02:48] VITALS: RESP 19; O2SAT 94
[2024-12-31 08:26] VITALS: PULSE 74; RESP 16; O2SAT 97
[2024-12-31] MEDS: SODIUM CHLORIDE 0.9% 1,000 ML IV ONE (09:00)
[2024-12-31 09:30] VITALS: PULSE 76; RESP 16; O2SAT 98
[2024-12-31] MEDS ORDERED: LEVE500T40 PO (10:05)
[2024-12-31 10:25] VITALS: BP 112/80; PULSE 73; RESP 16; O2SAT 94
[2024-12-31] MEDS: PANTOPRAZOLE 40 MG/10 ML VIAL INJ IV ONE (10:27)
[2024-12-31 10:28] VITALS: TEMP 98.5
[2024-12-31] MEDS: ACETAMINOPHEN 325 MG TAB PO ONE (10:28)
[2024-12-31] MEDS: KETOROLAC TROMETH 30 MG/ML 1ML VIAL IV ONE (10:28)
== END 2024-12-31 10:30 | disposition home or self-care (01) ==
LOC: ER 22:07 → EDBD 22:07 → ER 12-31 10:30
DX: G40.909 Epilepsy, unspecified, not intractable, without status epilepticus (principal); F10.129 Alcohol abuse with intoxication, unspecified; Z76.0 Encounter for issue of repeat prescription; Y90.6 Blood alcohol level of 120-199 mg/100 ml
CPT/HCPCS: 36415; 80048; 80320; 85025; 96374; 96375; 99284; J1885; J2470